=== PATIENT | female | born 1980 | race Caucasian/White ===

== ENCOUNTER 2016-10-18 13:46 | Emergency (ER) | payer MEDICAID ==
[2016-10-18] MEDS ORDERED: Acetaminophen 325 MG Tab PO ONE (14:51)
--- NOTE | 2016-10-18 14:57 | EDM.PDOC ---
ED HPI GENERAL MEDICAL PROBLEM - General Chief Complaint: General Stated Complaint: LEGS ARE SWOLLEN Time Seen by Provider: 10/18/16 14:35 Source of Information: Reports: Patient, RN notes reviewed History Limitations: Reports: No limitations - History of Present Illness INITIAL COMMENTS - FREE TEXT/NARRATIVE: 36-year-old female presents to emergency department today with complaint of elevated blood pressure and dental pain, she recently had a tooth extracted has been using codeine to control her pain however she felt something was not quite right presented to the emergency department for further evaluation she is currently at 19 weeks 2 days by ultrasound, she is a 5 para 4 she has had no complications with this no vaginal bleeding no discharge has felt movement did have complications with her last near the end developed preeclampsia. Has had an ultrasound at 8 weeks - Related Data Allergies Allergy/AdvReac Type Severity Reaction Status Date / Time morphine AdvReac Vomiting Verified 10/18/16 14:20 Penicillins AdvReac Nausea and Verified 10/18/16 14:20 Vomiting Home Meds: Home Meds Cranberry 500 mg PO DAILY 09/30/13 [History] Garlic 1 tab PO DAILY 09/30/13 [History] #103/Iron Fumarate/Fa [ ] 1 tab PO DAILY 07/28/16 [ History] Past Medical History Cardiovascular History: Reports: Hypertension Respiratory History: Reports: Asthma Genitourinary History: Reports: UTI, recurrent Other OB/BYN History: cervical CA Oncologic (Cancer) History: Reports: Cervix - Past Surgical History Other HEENT Surgeries/Procedures: teeth removed as child Cardiovascular Surgical History: Reports: None GI Surgical History: Reports: Cholecystectomy, Other (see below) Other GI Surgeries/Procedures: tumors removed from small intestine, benign Female Surgical History: Reports: section Social & Family History - Tobacco Use Smoking Status *Q: Heavy Tobacco Smoker Years of Tobacco use: 20 Packs/Tins Daily: 1 Used Tobacco, but Quit: No Second Hand Smoke Exposure: Yes - Alcohol Use Days Per Week of Alcohol Use: 0 - Recreational Drug Use Recreational Drug Use: No Drug Use in Last 12 Months: No Recreational Drug Type: Reports: Marijuana/Hashish, Methamphetamine Recreational Drug Use Frequency: Not Used In Over 1 Year ED ROS GENERAL - Review of Systems Review Of Systems: See Below Constitutional: Reports: no symptoms HEENT: Reports: No symptoms Respiratory: Reports: No Symptoms Cardiovascular: Reports: No symptoms GI/Abdominal: Reports: No symptoms : Reports: no symptoms Musculoskeletal: Reports: no symptoms Skin: Reports: no symptoms Neurological: Reports: Headache Psychiatric: Reports: No symptoms ED EXAM, GENERAL - Physical Exam Exam: See Below Exam Limited By: No limitations General Appearance: alert, WD/WN, no apparent distress Respiratory/Chest: no respiratory distress GI/Abdominal: soft, non tender, other (measures 20 cm) Extremities: pedal edema Course - Vital Signs Last Recorded V/S: Last Vital Signs Temp 95.7 F 10/18/16 14:20 Pulse 67 10/18/16 15:43 Resp 16 10/18/16 15:43 BP 164/83 H 10/18/16 15:43 Pulse Ox 97 10/18/16 15:43 - Orders/Labs/Meds Labs: Laboratory Tests 10/18/16 10/18/16 10/18/16 Range/Units 14:51 14:51 14:51 WBC 10.3 (4.5-11.0) K/uL RBC 2.87 L (3.30-5.50) M/uL Hgb 9.6 L D (12.0-15.0) g/dL Hct 28.2 L (36.0-48.0) % MCV 98 (80-98) fL MCH 33 H (27-31) pg MCHC 34 (32-36) % Plt Count 217 (150-400) K/uL Neut % (Auto) 64 (36-66) % Lymph % (Auto) 23 L (24-44) % [place] % (Auto) 11 H (2-6) % Eos % (Auto) 2 (2-4) % Baso % (Auto) 1 (0-1) % PT 10.2 (9.5-12.0) sec INR 0.96 (0.80-1.20) Sodium 140 (140-148) mmol/L Potassium 3.3 L (3.6-5.2) mmol/L Chloride 106 (100-108) mmol/L Carbon Dioxide 23 (21-32) mmol/L Anion Gap 14.3 H (5.0-14.0) mmol/L BUN 8 (7-18) mg/dL Creatinine 0.6 (0.6-1.0) mg/dL Est Cr Clr Drug Dosing 114.40 mL/min Estimated GFR (MDRD) > 60 (>60) Glucose 83 (74-106) mg/dL Uric Acid (2.6-6.2) mg/dL Calcium 7.6 L (8.5-10.1) mg/dL Total Bilirubin 0.2 (0.2-1.0) mg/dL AST 19 (15-37) U/L ALT 30 (12-78) U/L Alkaline Phosphatase 101 (46-116) U/L Total Protein 5.7 L (6.4-8.2) g/dL Albumin 2.3 L (3.4-5.0) g/dL Globulin 3.4 (2.3-3.5) g/dL Albumin/Globulin Ratio 0.7 L (1.2-2.2) Urine Color Urine Appearance Urine pH (4.5-8.0) Ur Specific [place] (1.008-1.030) Urine Protein (NEGATIVE) mg/dL Urine Glucose (UA) (NEGATIVE) mg/dL Urine Ketones (NEGATIVE) mg/dL Urine Occult Blood (NEGATIVE) Urine Nitrite (NEGATIVE) Urine Bilirubin (NEGATIVE) Urine Urobilinogen (NORMAL) mg/dL Ur Leukocyte Esterase (NEGATIVE) Urine RBC (0-5) Urine WBC (0-5) Ur Epithelial Cells Amorphous Sediment Urine Bacteria Urine Mucus 10/18/16 10/18/16 Range/Units 14:51 15:19 WBC (4.5-11.0) K/uL RBC (3.30-5.50) M/uL Hgb (12.0-15.0) g/dL Hct (36.0-48.0) % MCV (80-98) fL MCH (27-31) pg MCHC (32-36) % Plt Count (150-400) K/uL Neut % (Auto) (36-66) % Lymph % (Auto) (24-44) % [place] % (Auto) (2-6) % Eos % (Auto) (2-4) % Baso % (Auto) (0-1) % PT (9.5-12.0) sec INR (0.80-1.20) Sodium (140-148) mmol/L Potassium (3.6-5.2) mmol/L Chloride (100-108) mmol/L Carbon Dioxide (21-32) mmol/L Anion Gap (5.0-14.0) mmol/L BUN (7-18) mg/dL Creatinine (0.6-1.0) mg/dL Est Cr Clr Drug Dosing mL/min Estimated GFR (MDRD) (>60) Glucose (74-106) mg/dL Uric Acid 3.4 (2.6-6.2) mg/dL Calcium (8.5-10.1) mg/dL Total Bilirubin (0.2-1.0) mg/dL AST (15-37) U/L ALT (12-78) U/L Alkaline Phosphatase (46-116) U/L Total Protein (6.4-8.2) g/dL Albumin (3.4-5.0) g/dL Globulin (2.3-3.5) g/dL Albumin/Globulin Ratio (1.2-2.2) Urine Color Yellow Urine Appearance Clear Urine pH 7.0 (4.5-8.0) Ur Specific [place] 1.010 (1.008-1.030) Urine Protein 500 H (NEGATIVE) mg/dL Urine Glucose (UA) Normal (NEGATIVE) mg/dL Urine Ketones 15 H (NEGATIVE) mg/dL Urine Occult Blood Large (NEGATIVE) Urine Nitrite Negative (NEGATIVE) Urine Bilirubin Negative (NEGATIVE) Urine Urobilinogen Normal (NORMAL) mg/dL Ur Leukocyte Esterase Negative (NEGATIVE) Urine RBC 10-20 H (0-5) Urine WBC 0-5 (0-5) Ur Epithelial Cells Few Amorphous Sediment Not seen Urine Bacteria Not seen Urine Mucus Rare Meds: Medications Discontinued Medications Generic Name Dose Route Start Last Admin Trade Name Ana María PRN Reason Stop Dose Admin Acetaminophen 650 mg 10/18/16 14:51 10/18/16 15:09 Tylenol PO 10/18/16 14:52 650 mg NOW ONE Administration Departure - Departure Time of Disposition: 16:31 Disposition: Home, Self-Care 01 Condition: good Clinical Impression: Gestational hypertension Qualifiers: Trimester: second trimester Qualified Code(s): O13.2 - Gestational [- induced] hypertension without significant proteinuria, second trimester Forms: ED Department Discharge Additional Instructions: start labetalol 1 tablet once a day, with the plan to increasing to twice a day please followup with your OB provider on Tuesday for blood pressure and urine recheck - Assessment/Plan Plan: Assessment Acuity = acute Site and laterality = gestational hypertension Etiology = unclear etiology Manifestations = none Location of injury = home Lab values = hemoglobin 9.6 consistent with normal chromic anemia INR normal at 0.96 potassium low at 3.3 consistent with a hypokalemia uric acid normal at 3.4 albumin low at 2.3 consistent hypoalbuminemia urinalysis doesn't demonstrate 500 protein consistent with proteinuria RBCs 10-20 consistent hematuria Plan I did consult Andry Nuno nurse rn social services metal [employer] worker discussed the case with her reviewed old blood pressure values last blood pressure in July of this year 145/94, plan is to start labetalol 100 mg once a day and then advance to twice a day dosing I will start once daily prescription written she is going to followup with her OB provider on Tuesday of this week Patient was in agreement with the plan all questions were answered, they were instructed to return to the emergency department or call for worsening symptoms. This note was dictated using [employer] voice recognition software please call with any questions.
[2016-10-18 15:44] VITALS: BP 164/83
== END 2016-10-18 16:53 | disposition home or self-care (01) ==
LOC: JP.ED 13:46
DX: O13.2 Gestational [pregnancy-induced] hypertension without significant proteinuria, second trimester (principal); O99.332 Smoking (tobacco) complicating pregnancy, second trimester; F17.210 Nicotine dependence, cigarettes, uncomplicated; Z3A.12 12 weeks gestation of pregnancy; Z79.899 Other long term (current) drug therapy; Z88.0 Allergy status to penicillin; Z88.5 Allergy status to narcotic agent; Z85.41 Personal history of malignant neoplasm of cervix uteri; Z90.49 Acquired absence of other specified parts of digestive tract; Z98.890 Other specified postprocedural states
CPT/HCPCS: 36415; 80053; 81001; 84550; 85025; 85610; 99284; A9270

== ENCOUNTER 2017-02-10 14:38 | Observation (INO) | payer MEDICAID ==
[2017-02-10] MEDS ORDERED: Sodium Chloride 0.9% 10 ML Syringe FLUSH PRN (14:53)
[2017-02-10] MEDS ORDERED: Labetalol 20 MG/4 ML Syringe IVPUSH ONE ×2 (15:03→15:15)
[2017-02-10] MEDS: Lactated Ringers 1,000 ML IV SCH ×2 (15:15→22:55)
[2017-02-10] MEDS: Labetalol 100 MG Tab PO SCH ×2 (19:47→22:00)
--- NOTE | 2017-02-10 20:16 | PCM.PN ---
- General Info Date of Service: 02/10/17 Functional Status: Reports: Pain Controlled - Review of Systems General: Reports: No Symptoms HEENT: Reports: No Symptoms Pulmonary: Reports: No Symptoms Cardiovascular: Reports: No Symptoms Gastrointestinal: Reports: No Symptoms Genitourinary: Reports: No Symptoms Musculoskeletal: Reports: No Symptoms Skin: Reports: No Symptoms Neurological: Reports: No Symptoms Psychiatric: Reports: No Symptoms - Patient Data Vitals - most recent: Last Vital Signs Temp 36.1 C 02/10/17 19:24 Pulse 66 02/10/17 19:47 Resp 14 02/10/17 14:38 BP 155/78 H 02/10/17 19:47 Pulse Ox Weight - most recent: 69.853 kg I&O - last 24 hours: Intake & Output 02/10/17 02/10/17 02/10/17 06:59 14:59 22:59 Intake Total 458 Balance 458 Lab Results last 24 hrs: Laboratory Results - last 24 hr 02/10/17 02/10/17 02/10/17 Range/Units 14:43 15:04 15:04 WBC 13.1 H (4.5-11.0) K/uL RBC 3.17 L (3.30-5.50) M/uL Hgb 10.5 L (12.0-15.0) g/dL Hct 30.7 L (36.0-48.0) % MCV 97 (80-98) fL MCH 33 H (27-31) pg MCHC 34 (32-36) % Plt Count 222 (150-400) K/uL Neut % (Auto) 66 (36-66) % Lymph % (Auto) 21 L (24-44) % [place] % (Auto) 11 H (2-6) % Eos % (Auto) 1 L (2-4) % Baso % (Auto) 1 (0-1) % Sodium 136 L (140-148) mmol/L Potassium 3.5 L (3.6-5.2) mmol/L Chloride 104 (100-108) mmol/L Carbon Dioxide 21 (21-32) mmol/L Anion Gap 14.5 H (5.0-14.0) mmol/L BUN 10 (7-18) mg/dL Creatinine 0.7 (0.6-1.0) mg/dL Est Cr Clr Drug Dosing 98.05 mL/min Estimated GFR (MDRD) > 60 (>60) Glucose 76 (74-106) mg/dL Uric Acid (2.6-6.2) mg/dL Calcium 7.8 L (8.5-10.1) mg/dL Total Bilirubin 0.1 L (0.2-1.0) mg/dL AST 16 (15-37) U/L ALT 13 (12-78) U/L Alkaline Phosphatase 115 (46-116) U/L Total Protein 5.5 L (6.4-8.2) g/dL Albumin 1.8 L (3.4-5.0) g/dL Globulin 3.7 H (2.3-3.5) g/dL Albumin/Globulin Ratio 0.5 L (1.2-2.2) Urine Color [place] Urine Appearance Slightly cloudy Urine pH 6.0 (4.5-8.0) Ur Specific [place] 1.020 (1.008-1.030) Urine Protein 500 H (NEGATIVE) mg/dL Urine Glucose (UA) Normal (NEGATIVE) mg/dL Urine Ketones Negative (NEGATIVE) mg/dL Urine Occult Blood Moderate (NEGATIVE) Urine Nitrite Negative (NEGATIVE) Urine Bilirubin Negative (NEGATIVE) Urine Urobilinogen Normal (NORMAL) mg/dL Ur Leukocyte Esterase Small (NEGATIVE) Urine RBC 0-5 (0-5) Urine WBC 0-5 (0-5) Ur Epithelial Cells Many Amorphous Sediment Rare Urine Bacteria Rare Urine Mucus Few Ur Random Creatinine (20.0-370.0) mg/dL U Random Total Protein (6.0-11.9) mg/dL Protein/Creatinin Ratio (21.0-161.0) mg/g Urine Opiates Screen (NEGATIVE) Ur Oxycodone Screen (NEGATIVE) Urine Methadone Screen (NEGATIVE) Ur Propoxyphene Screen (NEGATIVE) Ur Barbiturates Screen (NEGATIVE) Ur Tricyclics Screen (NEGATIVE) Ur Phencyclidine Scrn (NEGATIVE) Ur Amphetamine Screen (NEGATIVE) U Methamphetamines Scrn (NEGATIVE) Urine MDMA Screen (NEGATIVE) U Benzodiazepines Scrn (NEGATIVE) U Cocaine Metab Screen (NEGATIVE) U Marijuana (THC) Screen (NEGATIVE) 02/10/17 02/10/17 02/10/17 Range/Units 17:00 18:06 18:06 WBC (4.5-11.0) K/uL RBC (3.30-5.50) M/uL Hgb (12.0-15.0) g/dL Hct (36.0-48.0) % MCV (80-98) fL MCH (27-31) pg MCHC (32-36) % Plt Count (150-400) K/uL Neut % (Auto) (36-66) % Lymph % (Auto) (24-44) % [place] % (Auto) (2-6) % Eos % (Auto) (2-4) % Baso % (Auto) (0-1) % Sodium (140-148) mmol/L Potassium (3.6-5.2) mmol/L Chloride (100-108) mmol/L Carbon Dioxide (21-32) mmol/L Anion Gap (5.0-14.0) mmol/L BUN (7-18) mg/dL Creatinine (0.6-1.0) mg/dL Est Cr Clr Drug Dosing mL/min Estimated GFR (MDRD) (>60) Glucose (74-106) mg/dL Uric Acid 4.6 (2.6-6.2) mg/dL Calcium (8.5-10.1) mg/dL Total Bilirubin (0.2-1.0) mg/dL AST (15-37) U/L ALT (12-78) U/L Alkaline Phosphatase (46-116) U/L Total Protein (6.4-8.2) g/dL Albumin (3.4-5.0) g/dL Globulin (2.3-3.5) g/dL Albumin/Globulin Ratio (1.2-2.2) Urine Color Urine Appearance Urine pH (4.5-8.0) Ur Specific [place] (1.008-1.030) Urine Protein (NEGATIVE) mg/dL Urine Glucose (UA) (NEGATIVE) mg/dL Urine Ketones (NEGATIVE) mg/dL Urine Occult Blood (NEGATIVE) Urine Nitrite (NEGATIVE) Urine Bilirubin (NEGATIVE) Urine Urobilinogen (NORMAL) mg/dL Ur Leukocyte Esterase (NEGATIVE) Urine RBC (0-5) Urine WBC (0-5) Ur Epithelial Cells Amorphous Sediment Urine Bacteria Urine Mucus Ur Random Creatinine 185.0 (20.0-370.0) mg/dL U Random Total Protein 1100.0 H (6.0-11.9) mg/dL Protein/Creatinin Ratio 5945.9 H (21.0-161.0) mg/g Urine Opiates Screen Negative (NEGATIVE) Ur Oxycodone Screen Negative (NEGATIVE) Urine Methadone Screen Negative (NEGATIVE) Ur Propoxyphene Screen Negative (NEGATIVE) Ur Barbiturates Screen Negative (NEGATIVE) Ur Tricyclics Screen Negative (NEGATIVE) Ur Phencyclidine Scrn Negative (NEGATIVE) Ur Amphetamine Screen Negative (NEGATIVE) U Methamphetamines Scrn Negative (NEGATIVE) Urine MDMA Screen Negative (NEGATIVE) U Benzodiazepines Scrn Negative (NEGATIVE) U Cocaine Metab Screen Negative (NEGATIVE) U Marijuana (THC) Screen Positive H (NEGATIVE) Med Orders - Current: Current Medications Lactated Ringer's (Ringers, Lactated) 1,000 mls @ 125 mls/hr IV ASDIRECTED PHILIP Last Admin: 02/10/17 15:15 Dose: 125 mls/hr Labetalol HCl (Normodyne) 100 mg PO BID [facility] Last Admin: 02/10/17 19:47 Dose: 100 mg Sodium Chloride (Saline Flush) 10 ml FLUSH ASDIRECTED PRN PRN Reason: Keep Vein Open Discontinued Medications Labetalol HCl (Normodyne) 20 mg IVPUSH NOW ONE PRN Reason: Protocol Stop: 02/10/17 15:04 Last Admin: 02/10/17 15:45 Dose: 20 mg Labetalol HCl (Normodyne) 0 mg IVPUSH NOW ONE PRN Reason: Protocol Stop: 02/10/17 15:16 Last Admin: 02/10/17 16:45 Dose: 20 mg - Exam General: alert, oriented HEENT: Pupils equal, Pupils reactive, EOMI, Mucous membr. moist/pink Neck: supple Lungs: Clear to Auscultation, Normal Respiratory Effort Cardiovascular: Regular Rate, Regular Rhythm GI/Abdominal Exam: Normal Bowel Sounds, Soft, Non-Tender, No Organomegaly, No Distention, No Abnormal Bruit, No Mass, Pelvis Stable Back Exam: Normal Inspection, Full Range of Motion Extremities: Normal Inspection, Normal Range of Motion, Non-Tender, No Pedal Edema, Normal Capillary Refill Skin: warm, dry, intact Neurological: no new focal deficit Psy/Mental Status: alert, normal affect, normal mood - Problem List & Annotations (1) High risk due to maternal drug abuse in third trimester SNOMED Code(s): 424338293, 301937650 Code(s): O99.323 - DRUG USE COMPLICATING , THIRD TRIMESTER; F19.90 - OTHER PSYCHOACTIVE SUBSTANCE USE, UNSPECIFIED, UNCOMPLICATED Status: Acute Current Visit: Yes (2) High-risk , multigravida in woman 35 years of age or older SNOMED Code(s): 97148009, 534413012 Code(s): O09.529 - SUPERVISION OF ELDERLY MULTIGRAVIDA, UNSPECIFIED TRIMESTER Status: Acute Current Visit: Yes (3) Chronic UTI (urinary tract infection) SNOMED Code(s): 317862368 Code(s): N39.0 - URINARY TRACT INFECTION, SITE NOT SPECIFIED Status: Acute Current Visit: Yes (4) History of delivery SNOMED Code(s): 136119719 Code(s): Z87.51 - PERSONAL HISTORY OF PRE-TERM LABOR Status: Acute Current Visit: Yes (5) Gestational hypertension SNOMED Code(s): 01316354 Code(s): O13.9 - GESTATIONAL HTN W/O SIGNIFICANT PROTEINURIA, UNSP TRIMESTER Status: Acute Current Visit: No Qualifiers: Trimester: third trimester Qualified Code(s): O13.3 - Gestational [ -induced] hypertension without significant proteinuria, third trimester - Problem List Review Problem List Initiated/Reviewed/Updated: Yes - My Orders Last 24 Hours: My Active Orders 02/10/17 BPP w NST [US] Routine 02/10/17 14:42 OB Check [OM.PC] Click to Edit 02/10/17 14:53 Peripheral IV Care [RC] . DIRECTED Sodium Chloride 0.9% [Saline Flush] 10 ml FLUSH ASDIRECTED PRN Peripheral IV Insertion Adult [OM.PC] Routine 02/10/17 15:00 Lactated Ringers [Ringers, Lactated] 1,000 ml IV ASDIRECTED 02/10/17 15:32 OB Ltd 1 or More Fetus [US] Routine 02/10/17 18:00 PROTEIN,URINE 24HR [URCHEM] Routine 02/10/17 19:40 Labetalol [Normodyne] 100 mg PO BID - Assessment Assessment:: 02/10/2017 36 yo @ 35 3/7 weeks gestation, was seen in the clinic today for her weekly NST and was noted to have high BP-170/94, 168/90, was sent over to L&D for monitoring and lab work and US Plan- Monitor BP LR 125 ml/hr CBC, CMP, Uric Acid, UDS, UA Labetalol 20mg IVP now Monitor FHTs BPP with size Will evaluate after results are back
[2017-02-10] MEDS ORDERED: Nicotine 10 MG/Cartridge Inhaler 168 Cartridges/Box INH PRN (20:31)
--- NOTE | 2017-02-10 20:37 | PCM.PN ---
- General Info Date of Service: 02/10/17 - Patient Data Vitals - most recent: Last Vital Signs Temp 36.1 C 02/10/17 19:24 Pulse 66 02/10/17 19:47 Resp 14 02/10/17 14:38 BP 155/78 H 02/10/17 19:47 Pulse Ox Weight - most recent: 69.853 kg I&O - last 24 hours: Intake & Output 02/10/17 02/10/17 02/10/17 06:59 14:59 22:59 Intake Total 458 Balance 458 Lab Results last 24 hrs: Laboratory Results - last 24 hr 02/10/17 02/10/17 02/10/17 Range/Units 14:43 15:04 15:04 WBC 13.1 H (4.5-11.0) K/uL RBC 3.17 L (3.30-5.50) M/uL Hgb 10.5 L (12.0-15.0) g/dL Hct 30.7 L (36.0-48.0) % MCV 97 (80-98) fL MCH 33 H (27-31) pg MCHC 34 (32-36) % Plt Count 222 (150-400) K/uL Neut % (Auto) 66 (36-66) % Lymph % (Auto) 21 L (24-44) % [place] % (Auto) 11 H (2-6) % Eos % (Auto) 1 L (2-4) % Baso % (Auto) 1 (0-1) % Sodium 136 L (140-148) mmol/L Potassium 3.5 L (3.6-5.2) mmol/L Chloride 104 (100-108) mmol/L Carbon Dioxide 21 (21-32) mmol/L Anion Gap 14.5 H (5.0-14.0) mmol/L BUN 10 (7-18) mg/dL Creatinine 0.7 (0.6-1.0) mg/dL Est Cr Clr Drug Dosing 98.05 mL/min Estimated GFR (MDRD) > 60 (>60) Glucose 76 (74-106) mg/dL Uric Acid (2.6-6.2) mg/dL Calcium 7.8 L (8.5-10.1) mg/dL Total Bilirubin 0.1 L (0.2-1.0) mg/dL AST 16 (15-37) U/L ALT 13 (12-78) U/L Alkaline Phosphatase 115 (46-116) U/L Total Protein 5.5 L (6.4-8.2) g/dL Albumin 1.8 L (3.4-5.0) g/dL Globulin 3.7 H (2.3-3.5) g/dL Albumin/Globulin Ratio 0.5 L (1.2-2.2) Urine Color [place] Urine Appearance Slightly cloudy Urine pH 6.0 (4.5-8.0) Ur Specific [place] 1.020 (1.008-1.030) Urine Protein 500 H (NEGATIVE) mg/dL Urine Glucose (UA) Normal (NEGATIVE) mg/dL Urine Ketones Negative (NEGATIVE) mg/dL Urine Occult Blood Moderate (NEGATIVE) Urine Nitrite Negative (NEGATIVE) Urine Bilirubin Negative (NEGATIVE) Urine Urobilinogen Normal (NORMAL) mg/dL Ur Leukocyte Esterase Small (NEGATIVE) Urine RBC 0-5 (0-5) Urine WBC 0-5 (0-5) Ur Epithelial Cells Many Amorphous Sediment Rare Urine Bacteria Rare Urine Mucus Few Ur Random Creatinine (20.0-370.0) mg/dL U Random Total Protein (6.0-11.9) mg/dL Protein/Creatinin Ratio (21.0-161.0) mg/g Urine Opiates Screen (NEGATIVE) Ur Oxycodone Screen (NEGATIVE) Urine Methadone Screen (NEGATIVE) Ur Propoxyphene Screen (NEGATIVE) Ur Barbiturates Screen (NEGATIVE) Ur Tricyclics Screen (NEGATIVE) Ur Phencyclidine Scrn (NEGATIVE) Ur Amphetamine Screen (NEGATIVE) U Methamphetamines Scrn (NEGATIVE) Urine MDMA Screen (NEGATIVE) U Benzodiazepines Scrn (NEGATIVE) U Cocaine Metab Screen (NEGATIVE) U Marijuana (THC) Screen (NEGATIVE) 02/10/17 02/10/17 02/10/17 Range/Units 17:00 18:06 18:06 WBC (4.5-11.0) K/uL RBC (3.30-5.50) M/uL Hgb (12.0-15.0) g/dL Hct (36.0-48.0) % MCV (80-98) fL MCH (27-31) pg MCHC (32-36) % Plt Count (150-400) K/uL Neut % (Auto) (36-66) % Lymph % (Auto) (24-44) % [place] % (Auto) (2-6) % Eos % (Auto) (2-4) % Baso % (Auto) (0-1) % Sodium (140-148) mmol/L Potassium (3.6-5.2) mmol/L Chloride (100-108) mmol/L Carbon Dioxide (21-32) mmol/L Anion Gap (5.0-14.0) mmol/L BUN (7-18) mg/dL Creatinine (0.6-1.0) mg/dL Est Cr Clr Drug Dosing mL/min Estimated GFR (MDRD) (>60) Glucose (74-106) mg/dL Uric Acid 4.6 (2.6-6.2) mg/dL Calcium (8.5-10.1) mg/dL Total Bilirubin (0.2-1.0) mg/dL AST (15-37) U/L ALT (12-78) U/L Alkaline Phosphatase (46-116) U/L Total Protein (6.4-8.2) g/dL Albumin (3.4-5.0) g/dL Globulin (2.3-3.5) g/dL Albumin/Globulin Ratio (1.2-2.2) Urine Color Urine Appearance Urine pH (4.5-8.0) Ur Specific [place] (1.008-1.030) Urine Protein (NEGATIVE) mg/dL Urine Glucose (UA) (NEGATIVE) mg/dL Urine Ketones (NEGATIVE) mg/dL Urine Occult Blood (NEGATIVE) Urine Nitrite (NEGATIVE) Urine Bilirubin (NEGATIVE) Urine Urobilinogen (NORMAL) mg/dL Ur Leukocyte Esterase (NEGATIVE) Urine RBC (0-5) Urine WBC (0-5) Ur Epithelial Cells Amorphous Sediment Urine Bacteria Urine Mucus Ur Random Creatinine 185.0 (20.0-370.0) mg/dL U Random Total Protein 1100.0 H (6.0-11.9) mg/dL Protein/Creatinin Ratio 5945.9 H (21.0-161.0) mg/g Urine Opiates Screen Negative (NEGATIVE) Ur Oxycodone Screen Negative (NEGATIVE) Urine Methadone Screen Negative (NEGATIVE) Ur Propoxyphene Screen Negative (NEGATIVE) Ur Barbiturates Screen Negative (NEGATIVE) Ur Tricyclics Screen Negative (NEGATIVE) Ur Phencyclidine Scrn Negative (NEGATIVE) Ur Amphetamine Screen Negative (NEGATIVE) U Methamphetamines Scrn Negative (NEGATIVE) Urine MDMA Screen Negative (NEGATIVE) U Benzodiazepines Scrn Negative (NEGATIVE) U Cocaine Metab Screen Negative (NEGATIVE) U Marijuana (THC) Screen Positive H (NEGATIVE) Med Orders - Current: Current Medications Acetaminophen (Tylenol) 650 mg PO Q6H PRN PRN Reason: Pain Lactated Ringer's (Ringers, Lactated) 1,000 mls @ 125 mls/hr IV ASDIRECTED [facility] Last Admin: 02/10/17 15:15 Dose: 125 mls/hr Labetalol HCl (Normodyne) 100 mg PO BID PHILIP Last Admin: 02/10/17 19:47 Dose: 100 mg Nitrofurantoin Macrocrystals (Macrodantin) 50 mg PO BEDTIME [facility] Sodium Chloride (Saline Flush) 10 ml FLUSH ASDIRECTED PRN PRN Reason: Keep Vein Open Discontinued Medications Labetalol HCl (Normodyne) 20 mg IVPUSH NOW ONE PRN Reason: Protocol Stop: 02/10/17 15:04 Last Admin: 02/10/17 15:45 Dose: 20 mg Labetalol HCl (Normodyne) 0 mg IVPUSH NOW ONE PRN Reason: Protocol Stop: 02/10/17 15:16 Last Admin: 02/10/17 16:45 Dose: 20 mg - Problem List & Annotations (1) High risk due to maternal drug abuse in third trimester SNOMED Code(s): 626251677, 285116843 Code(s): O99.323 - DRUG USE COMPLICATING , THIRD TRIMESTER; F19.90 - OTHER PSYCHOACTIVE SUBSTANCE USE, UNSPECIFIED, UNCOMPLICATED Status: Acute Current Visit: Yes (2) High-risk , multigravida in woman 35 years of age or older SNOMED Code(s): 23811448, 640657606 Code(s): O09.529 - SUPERVISION OF ELDERLY MULTIGRAVIDA, UNSPECIFIED TRIMESTER Status: Acute Current Visit: Yes (3) Chronic UTI (urinary tract infection) SNOMED Code(s): 611471310 Code(s): N39.0 - URINARY TRACT INFECTION, SITE NOT SPECIFIED Status: Acute Current Visit: Yes (4) History of delivery SNOMED Code(s): 787847023 Code(s): Z87.51 - PERSONAL HISTORY OF PRE-TERM LABOR Status: Acute Current Visit: Yes (5) Gestational hypertension SNOMED Code(s): 42305964 Code(s): O13.9 - GESTATIONAL HTN W/O SIGNIFICANT PROTEINURIA, UNSP TRIMESTER Status: Acute Current Visit: No Qualifiers: Trimester: third trimester Qualified Code(s): O13.3 - Gestational [ -induced] hypertension without significant proteinuria, third trimester - Problem List Review Problem List Initiated/Reviewed/Updated: Yes - My Orders Last 24 Hours: My Active Orders 02/10/17 BPP w NST [US] Routine 02/10/17 14:42 OB Check [OM.PC] Click to Edit 02/10/17 14:53 Peripheral IV Care [RC] . DIRECTED Sodium Chloride 0.9% [Saline Flush] 10 ml FLUSH ASDIRECTED PRN Peripheral IV Insertion Adult [OM.PC] Routine 02/10/17 15:00 Lactated Ringers [Ringers, Lactated] 1,000 ml IV ASDIRECTED 02/10/17 15:32 OB Ltd 1 or More Fetus [US] Routine 02/10/17 18:00 PROTEIN,URINE 24HR [URCHEM] Routine 02/10/17 19:40 Labetalol [Normodyne] 100 mg PO BID 02/10/17 20:18 Acetaminophen [Tylenol] 650 mg PO Q6H PRN 02/10/17 21:00 Nitrofurantoin Macrocrystal [Macrodantin] 50 mg PO BEDTIME - Assessment Assessment:: 02/10/2017 36 yo @ 35 3/7 weeks gestation, was seen in the clinic today for her weekly NST and was noted to have high BP-170/94, 168/90, was sent over to L&D for monitoring and lab work and US Plan- Monitor BP LR 125 ml/hr CBC, CMP, Uric Acid, UDS, UA Labetalol 20mg IVP now Monitor FHTs BPP with size Will evaluate after results are back 02/10/2017 BPP done with size-Fetus measuring symmetrically small at 32 weeks when should be 35 3/7 wks BPP 8/8 Labs not HELLP or preeclampsia-did have Protein in urine but has whole Patient admitted that she has not been taking her labetalol [place] phoned for consult. Dr. Arana states to keep patient overnight, 24hr urine, BUN and creatnine are currently stable. Start back on labetalol, then have patient come for biweekly NST with BPP till 37 weeks then perform RCS at this time and place patient on bedrest - Plan Plan:: 02/10/2017 Initiate 24 hour urine CBC, CMP, uric acid again tomorrow Continue to monitor Vital signs Initiate oral labetalol Intermittent FHTs Bed rest Will plan discharge when 24 hour urine is complete
[2017-02-10] MEDS ORDERED: Nitrofurantoin Macrocrystal 50 MG Cap PO SCH (21:00)
--- NOTE | 2017-02-10 21:00 | PCM.PN ---
- General Info Date of Service: 02/10/17 - Patient Data Vitals - most recent: Last Vital Signs Temp 36.1 C 02/10/17 19:24 Pulse 68 02/10/17 20:37 Resp 18 02/10/17 20:37 BP 150/75 H 02/10/17 20:37 Pulse Ox Weight - most recent: 69.853 kg I&O - last 24 hours: Intake & Output 02/10/17 02/10/17 02/10/17 06:59 14:59 22:59 Intake Total 458 Balance 458 Lab Results last 24 hrs: Laboratory Results - last 24 hr 02/10/17 02/10/17 02/10/17 Range/Units 14:43 15:04 15:04 WBC 13.1 H (4.5-11.0) K/uL RBC 3.17 L (3.30-5.50) M/uL Hgb 10.5 L (12.0-15.0) g/dL Hct 30.7 L (36.0-48.0) % MCV 97 (80-98) fL MCH 33 H (27-31) pg MCHC 34 (32-36) % Plt Count 222 (150-400) K/uL Neut % (Auto) 66 (36-66) % Lymph % (Auto) 21 L (24-44) % [place] % (Auto) 11 H (2-6) % Eos % (Auto) 1 L (2-4) % Baso % (Auto) 1 (0-1) % Sodium 136 L (140-148) mmol/L Potassium 3.5 L (3.6-5.2) mmol/L Chloride 104 (100-108) mmol/L Carbon Dioxide 21 (21-32) mmol/L Anion Gap 14.5 H (5.0-14.0) mmol/L BUN 10 (7-18) mg/dL Creatinine 0.7 (0.6-1.0) mg/dL Est Cr Clr Drug Dosing 98.05 mL/min Estimated GFR (MDRD) > 60 (>60) Glucose 76 (74-106) mg/dL Uric Acid (2.6-6.2) mg/dL Calcium 7.8 L (8.5-10.1) mg/dL Total Bilirubin 0.1 L (0.2-1.0) mg/dL AST 16 (15-37) U/L ALT 13 (12-78) U/L Alkaline Phosphatase 115 (46-116) U/L Total Protein 5.5 L (6.4-8.2) g/dL Albumin 1.8 L (3.4-5.0) g/dL Globulin 3.7 H (2.3-3.5) g/dL Albumin/Globulin Ratio 0.5 L (1.2-2.2) Urine Color [place] Urine Appearance Slightly cloudy Urine pH 6.0 (4.5-8.0) Ur Specific [place] 1.020 (1.008-1.030) Urine Protein 500 H (NEGATIVE) mg/dL Urine Glucose (UA) Normal (NEGATIVE) mg/dL Urine Ketones Negative (NEGATIVE) mg/dL Urine Occult Blood Moderate (NEGATIVE) Urine Nitrite Negative (NEGATIVE) Urine Bilirubin Negative (NEGATIVE) Urine Urobilinogen Normal (NORMAL) mg/dL Ur Leukocyte Esterase Small (NEGATIVE) Urine RBC 0-5 (0-5) Urine WBC 0-5 (0-5) Ur Epithelial Cells Many Amorphous Sediment Rare Urine Bacteria Rare Urine Mucus Few Ur Random Creatinine (20.0-370.0) mg/dL U Random Total Protein (6.0-11.9) mg/dL Protein/Creatinin Ratio (21.0-161.0) mg/g Urine Opiates Screen (NEGATIVE) Ur Oxycodone Screen (NEGATIVE) Urine Methadone Screen (NEGATIVE) Ur Propoxyphene Screen (NEGATIVE) Ur Barbiturates Screen (NEGATIVE) Ur Tricyclics Screen (NEGATIVE) Ur Phencyclidine Scrn (NEGATIVE) Ur Amphetamine Screen (NEGATIVE) U Methamphetamines Scrn (NEGATIVE) Urine MDMA Screen (NEGATIVE) U Benzodiazepines Scrn (NEGATIVE) U Cocaine Metab Screen (NEGATIVE) U Marijuana (THC) Screen (NEGATIVE) 02/10/17 02/10/17 02/10/17 Range/Units 17:00 18:06 18:06 WBC (4.5-11.0) K/uL RBC (3.30-5.50) M/uL Hgb (12.0-15.0) g/dL Hct (36.0-48.0) % MCV (80-98) fL MCH (27-31) pg MCHC (32-36) % Plt Count (150-400) K/uL Neut % (Auto) (36-66) % Lymph % (Auto) (24-44) % [place] % (Auto) (2-6) % Eos % (Auto) (2-4) % Baso % (Auto) (0-1) % Sodium (140-148) mmol/L Potassium (3.6-5.2) mmol/L Chloride (100-108) mmol/L Carbon Dioxide (21-32) mmol/L Anion Gap (5.0-14.0) mmol/L BUN (7-18) mg/dL Creatinine (0.6-1.0) mg/dL Est Cr Clr Drug Dosing mL/min Estimated GFR (MDRD) (>60) Glucose (74-106) mg/dL Uric Acid 4.6 (2.6-6.2) mg/dL Calcium (8.5-10.1) mg/dL Total Bilirubin (0.2-1.0) mg/dL AST (15-37) U/L ALT (12-78) U/L Alkaline Phosphatase (46-116) U/L Total Protein (6.4-8.2) g/dL Albumin (3.4-5.0) g/dL Globulin (2.3-3.5) g/dL Albumin/Globulin Ratio (1.2-2.2) Urine Color Urine Appearance Urine pH (4.5-8.0) Ur Specific [place] (1.008-1.030) Urine Protein (NEGATIVE) mg/dL Urine Glucose (UA) (NEGATIVE) mg/dL Urine Ketones (NEGATIVE) mg/dL Urine Occult Blood (NEGATIVE) Urine Nitrite (NEGATIVE) Urine Bilirubin (NEGATIVE) Urine Urobilinogen (NORMAL) mg/dL Ur Leukocyte Esterase (NEGATIVE) Urine RBC (0-5) Urine WBC (0-5) Ur Epithelial Cells Amorphous Sediment Urine Bacteria Urine Mucus Ur Random Creatinine 185.0 (20.0-370.0) mg/dL U Random Total Protein 1100.0 H (6.0-11.9) mg/dL Protein/Creatinin Ratio 5945.9 H (21.0-161.0) mg/g Urine Opiates Screen Negative (NEGATIVE) Ur Oxycodone Screen Negative (NEGATIVE) Urine Methadone Screen Negative (NEGATIVE) Ur Propoxyphene Screen Negative (NEGATIVE) Ur Barbiturates Screen Negative (NEGATIVE) Ur Tricyclics Screen Negative (NEGATIVE) Ur Phencyclidine Scrn Negative (NEGATIVE) Ur Amphetamine Screen Negative (NEGATIVE) U Methamphetamines Scrn Negative (NEGATIVE) Urine MDMA Screen Negative (NEGATIVE) U Benzodiazepines Scrn Negative (NEGATIVE) U Cocaine Metab Screen Negative (NEGATIVE) U Marijuana (THC) Screen Positive H (NEGATIVE) Med Orders - Current: Current Medications Acetaminophen (Tylenol) 650 mg PO Q6H PRN PRN Reason: Pain Lactated Ringer's (Ringers, Lactated) 1,000 mls @ 125 mls/hr IV ASDIRECTED [facility] Last Admin: 02/10/17 15:15 Dose: 125 mls/hr Labetalol HCl (Normodyne) 100 mg PO BID PHILIP Last Admin: 02/10/17 19:47 Dose: 100 mg Nicotine (Nicotrol) 10 mg INH ASDIRECTED PRN PRN Reason: Withdrawal Symptoms Nitrofurantoin Macrocrystals (Macrodantin) 50 mg PO BEDTIME [facility] Sodium Chloride (Saline Flush) 10 ml FLUSH ASDIRECTED PRN PRN Reason: Keep Vein Open Discontinued Medications Labetalol HCl (Normodyne) 20 mg IVPUSH NOW ONE PRN Reason: Protocol Stop: 02/10/17 15:04 Last Admin: 02/10/17 15:45 Dose: 20 mg Labetalol HCl (Normodyne) 0 mg IVPUSH NOW ONE PRN Reason: Protocol Stop: 02/10/17 15:16 Last Admin: 02/10/17 16:45 Dose: 20 mg - Problem List & Annotations (1) High risk due to maternal drug abuse in third trimester SNOMED Code(s): 525401775, 454168152 Code(s): O99.323 - DRUG USE COMPLICATING , THIRD TRIMESTER; F19.90 - OTHER PSYCHOACTIVE SUBSTANCE USE, UNSPECIFIED, UNCOMPLICATED Status: Acute Current Visit: Yes (2) High-risk , multigravida in woman 35 years of age or older SNOMED Code(s): 38883740, 422943839 Code(s): O09.529 - SUPERVISION OF ELDERLY MULTIGRAVIDA, UNSPECIFIED TRIMESTER Status: Acute Current Visit: Yes (3) Chronic UTI (urinary tract infection) SNOMED Code(s): 513791042 Code(s): N39.0 - URINARY TRACT INFECTION, SITE NOT SPECIFIED Status: Acute Current Visit: Yes (4) History of delivery SNOMED Code(s): 339385363 Code(s): Z87.51 - PERSONAL HISTORY OF PRE-TERM LABOR Status: Acute Current Visit: Yes (5) Gestational hypertension SNOMED Code(s): 37450393 Code(s): O13.9 - GESTATIONAL HTN W/O SIGNIFICANT PROTEINURIA, UNSP TRIMESTER Status: Acute Current Visit: No Qualifiers: Trimester: third trimester Qualified Code(s): O13.3 - Gestational [ -induced] hypertension without significant proteinuria, third trimester - Problem List Review Problem List Initiated/Reviewed/Updated: Yes - My Orders Last 24 Hours: My Active Orders 02/10/17 BPP w NST [US] Routine 02/10/17 14:42 OB Check [OM.PC] Click to Edit 02/10/17 14:53 Peripheral IV Care [RC] . DIRECTED Sodium Chloride 0.9% [Saline Flush] 10 ml FLUSH ASDIRECTED PRN Peripheral IV Insertion Adult [OM.PC] Routine 02/10/17 15:00 Lactated Ringers [Ringers, Lactated] 1,000 ml IV ASDIRECTED 02/10/17 15:32 OB Ltd 1 or More Fetus [US] Routine 02/10/17 18:00 PROTEIN,URINE 24HR [URCHEM] Routine 02/10/17 19:40 Labetalol [Normodyne] 100 mg PO BID 02/10/17 20:18 Acetaminophen [Tylenol] 650 mg PO Q6H PRN 02/10/17 20:31 Nicotine [Nicotrol] 10 mg INH ASDIRECTED PRN 02/10/17 21:00 Nitrofurantoin Macrocrystal [Macrodantin] 50 mg PO BEDTIME - Assessment Assessment:: 02/10/2017 36 yo @ 35 3/7 weeks gestation, was seen in the clinic today for her weekly NST and was noted to have high BP-170/94, 168/90, was sent over to L&D for monitoring and lab work and US Plan- Monitor BP LR 125 ml/hr CBC, CMP, Uric Acid, UDS, UA Labetalol 20mg IVP now Monitor FHTs BPP with size Will evaluate after results are back 02/10/2017 BPP done with size-Fetus measuring symmetrically small at 32 weeks when should be 35 3/7 wks BPP 03/01 Labs not HELLP or preeclampsia-did have Protein in urine but has whole Patient admitted that she has not been taking her labetalol [place] phoned for consult. Dr. Arana states to keep patient overnight, 24hr urine, BUN and creatnine are currently stable. Start back on labetalol, then have patient come for biweekly NST with BPP till 37 weeks then perform RCS at this time and place patient on bedrest 02/10/2017 Patient is now refusing to maintain bedrest and wants to go outside and smoke. Explained risks and benefits, have offered nicotrol inhaler and medications to help with sleep Patient states she doesn't think that will work Patient told if she decided to leave she would be leaving AMA - Plan Plan:: 02/10/2017 Initiate 24 hour urine CBC, CMP, uric acid again tomorrow Continue to monitor Vital signs Initiate oral labetalol Intermittent FHTs Bed rest Will plan discharge when 24 hour urine is complete 02/10/2017 Encourage patient to maintain bedrest and to use nicotrol inhaler If patient leaves have her sign AMA papers
[2017-02-10] MEDS ORDERED: hydrOXYzine HCl 100 MG/2 ML SDV IM ONE (21:03)
[2017-02-10] MEDS ORDERED: Zolpidem 5 MG Tab PO PRN (21:03)
[2017-02-10] MEDS: Acetaminophen 325 MG Tab PO PRN (22:35)
[2017-02-11] MEDS: Acetaminophen 325 MG Tab PO PRN ×2 (05:42→12:16)
[2017-02-11] MEDS: Lactated Ringers 1,000 ML IV SCH (06:14)
[2017-02-11] MEDS ORDERED: Nicotine 10 MG/Cartridge Inhaler 168 Cartridges/Box INH PRN (07:11)
[2017-02-11] MEDS: Labetalol 100 MG Tab PO SCH (08:29)
--- NOTE | 2017-02-11 08:32 | PCM.PN ---
- General Info Date of Service: 02/11/17 Functional Status: Reports: Pain Controlled - Review of Systems General: Reports: No Symptoms HEENT: Reports: No Symptoms Pulmonary: Reports: No Symptoms Cardiovascular: Reports: No Symptoms Gastrointestinal: Reports: No Symptoms Genitourinary: Reports: No Symptoms Musculoskeletal: Reports: No Symptoms Skin: Reports: No Symptoms Neurological: Reports: No Symptoms Psychiatric: Reports: No Symptoms - Patient Data Vitals - most recent: Last Vital Signs Temp 36.8 C 02/11/17 02:30 Pulse 68 02/11/17 02:30 Resp 16 02/11/17 02:30 BP 158/79 H 02/11/17 02:30 Pulse Ox Weight - most recent: 69.853 kg I&O - last 24 hours: Intake & Output 02/10/17 02/11/17 02/11/17 22:59 06:59 14:59 Intake Total 458 2074 Output Total 300 1400 Balance 158 674 Lab Results last 24 hrs: Laboratory Results - last 24 hr 02/10/17 02/10/17 02/10/17 Range/Units 14:43 15:04 15:04 WBC 13.1 H (4.5-11.0) K/uL RBC 3.17 L (3.30-5.50) M/uL Hgb 10.5 L (12.0-15.0) g/dL Hct 30.7 L (36.0-48.0) % MCV 97 (80-98) fL MCH 33 H (27-31) pg MCHC 34 (32-36) % Plt Count 222 (150-400) K/uL Neut % (Auto) 66 (36-66) % Lymph % (Auto) 21 L (24-44) % [place] % (Auto) 11 H (2-6) % Eos % (Auto) 1 L (2-4) % Baso % (Auto) 1 (0-1) % Sodium 136 L (140-148) mmol/L Potassium 3.5 L (3.6-5.2) mmol/L Chloride 104 (100-108) mmol/L Carbon Dioxide 21 (21-32) mmol/L Anion Gap 14.5 H (5.0-14.0) mmol/L BUN 10 (7-18) mg/dL Creatinine 0.7 (0.6-1.0) mg/dL Est Cr Clr Drug Dosing 98.05 mL/min Estimated GFR (MDRD) > 60 (>60) Glucose 76 (74-106) mg/dL Uric Acid (2.6-6.2) mg/dL Calcium 7.8 L (8.5-10.1) mg/dL Total Bilirubin 0.1 L (0.2-1.0) mg/dL AST 16 (15-37) U/L ALT 13 (12-78) U/L Alkaline Phosphatase 115 (46-116) U/L Total Protein 5.5 L (6.4-8.2) g/dL Albumin 1.8 L (3.4-5.0) g/dL Globulin 3.7 H (2.3-3.5) g/dL Albumin/Globulin Ratio 0.5 L (1.2-2.2) Urine Color [place] Urine Appearance Slightly cloudy Urine pH 6.0 (4.5-8.0) Ur Specific [place] 1.020 (1.008-1.030) Urine Protein 500 H (NEGATIVE) mg/dL Urine Glucose (UA) Normal (NEGATIVE) mg/dL Urine Ketones Negative (NEGATIVE) mg/dL Urine Occult Blood Moderate (NEGATIVE) Urine Nitrite Negative (NEGATIVE) Urine Bilirubin Negative (NEGATIVE) Urine Urobilinogen Normal (NORMAL) mg/dL Ur Leukocyte Esterase Small (NEGATIVE) Urine RBC 0-5 (0-5) Urine WBC 0-5 (0-5) Ur Epithelial Cells Many Amorphous Sediment Rare Urine Bacteria Rare Urine Mucus Few Ur Random Creatinine (20.0-370.0) mg/dL U Random Total Protein (6.0-11.9) mg/dL Protein/Creatinin Ratio (21.0-161.0) mg/g Urine Opiates Screen (NEGATIVE) Ur Oxycodone Screen (NEGATIVE) Urine Methadone Screen (NEGATIVE) Ur Propoxyphene Screen (NEGATIVE) Ur Barbiturates Screen (NEGATIVE) Ur Tricyclics Screen (NEGATIVE) Ur Phencyclidine Scrn (NEGATIVE) Ur Amphetamine Screen (NEGATIVE) U Methamphetamines Scrn (NEGATIVE) Urine MDMA Screen (NEGATIVE) U Benzodiazepines Scrn (NEGATIVE) U Cocaine Metab Screen (NEGATIVE) U Marijuana (THC) Screen (NEGATIVE) 02/10/17 02/10/17 02/10/17 Range/Units 17:00 18:06 18:06 WBC (4.5-11.0) K/uL RBC (3.30-5.50) M/uL Hgb (12.0-15.0) g/dL Hct (36.0-48.0) % MCV (80-98) fL MCH (27-31) pg MCHC (32-36) % Plt Count (150-400) K/uL Neut % (Auto) (36-66) % Lymph % (Auto) (24-44) % [place] % (Auto) (2-6) % Eos % (Auto) (2-4) % Baso % (Auto) (0-1) % Sodium (140-148) mmol/L Potassium (3.6-5.2) mmol/L Chloride (100-108) mmol/L Carbon Dioxide (21-32) mmol/L Anion Gap (5.0-14.0) mmol/L BUN (7-18) mg/dL Creatinine (0.6-1.0) mg/dL Est Cr Clr Drug Dosing mL/min Estimated GFR (MDRD) (>60) Glucose (74-106) mg/dL Uric Acid 4.6 (2.6-6.2) mg/dL Calcium (8.5-10.1) mg/dL Total Bilirubin (0.2-1.0) mg/dL AST (15-37) U/L ALT (12-78) U/L Alkaline Phosphatase (46-116) U/L Total Protein (6.4-8.2) g/dL Albumin (3.4-5.0) g/dL Globulin (2.3-3.5) g/dL Albumin/Globulin Ratio (1.2-2.2) Urine Color Urine Appearance Urine pH (4.5-8.0) Ur Specific [place] (1.008-1.030) Urine Protein (NEGATIVE) mg/dL Urine Glucose (UA) (NEGATIVE) mg/dL Urine Ketones (NEGATIVE) mg/dL Urine Occult Blood (NEGATIVE) Urine Nitrite (NEGATIVE) Urine Bilirubin (NEGATIVE) Urine Urobilinogen (NORMAL) mg/dL Ur Leukocyte Esterase (NEGATIVE) Urine RBC (0-5) Urine WBC (0-5) Ur Epithelial Cells Amorphous Sediment Urine Bacteria Urine Mucus Ur Random Creatinine 185.0 (20.0-370.0) mg/dL U Random Total Protein 1100.0 H (6.0-11.9) mg/dL Protein/Creatinin Ratio 5945.9 H (21.0-161.0) mg/g Urine Opiates Screen Negative (NEGATIVE) Ur Oxycodone Screen Negative (NEGATIVE) Urine Methadone Screen Negative (NEGATIVE) Ur Propoxyphene Screen Negative (NEGATIVE) Ur Barbiturates Screen Negative (NEGATIVE) Ur Tricyclics Screen Negative (NEGATIVE) Ur Phencyclidine Scrn Negative (NEGATIVE) Ur Amphetamine Screen Negative (NEGATIVE) U Methamphetamines Scrn Negative (NEGATIVE) Urine MDMA Screen Negative (NEGATIVE) U Benzodiazepines Scrn Negative (NEGATIVE) U Cocaine Metab Screen Negative (NEGATIVE) U Marijuana (THC) Screen Positive H (NEGATIVE) 02/11/17 02/11/17 Range/Units 05:10 05:10 WBC 12.0 H (4.5-11.0) K/uL RBC 2.80 L (3.30-5.50) M/uL Hgb 9.5 L (12.0-15.0) g/dL Hct 27.6 L (36.0-48.0) % MCV 99 H (80-98) fL MCH 34 H (27-31) pg MCHC 34 (32-36) % Plt Count 205 (150-400) K/uL Neut % (Auto) 60 (36-66) % Lymph % (Auto) 25 (24-44) % [place] % (Auto) 13 H (2-6) % Eos % (Auto) 2 (2-4) % Baso % (Auto) 0 (0-1) % Sodium 138 L (140-148) mmol/L Potassium 3.8 (3.6-5.2) mmol/L Chloride 108 (100-108) mmol/L Carbon Dioxide 23 (21-32) mmol/L Anion Gap 10.8 (5.0-14.0) mmol/L BUN 9 (7-18) mg/dL Creatinine 0.7 (0.6-1.0) mg/dL Est Cr Clr Drug Dosing 94.10 mL/min Estimated GFR (MDRD) > 60 (>60) Glucose 83 (74-106) mg/dL Uric Acid 4.5 (2.6-6.2) mg/dL Calcium 7.4 L (8.5-10.1) mg/dL Total Bilirubin 0.1 L (0.2-1.0) mg/dL AST 15 (15-37) U/L ALT 11 L (12-78) U/L Alkaline Phosphatase 98 (46-116) U/L Total Protein 4.8 L (6.4-8.2) g/dL Albumin 1.5 L (3.4-5.0) g/dL Globulin 3.3 (2.3-3.5) g/dL Albumin/Globulin Ratio 0.5 L (1.2-2.2) Urine Color Urine Appearance Urine pH (4.5-8.0) Ur Specific [place] (1.008-1.030) Urine Protein (NEGATIVE) mg/dL Urine Glucose (UA) (NEGATIVE) mg/dL Urine Ketones (NEGATIVE) mg/dL Urine Occult Blood (NEGATIVE) Urine Nitrite (NEGATIVE) Urine Bilirubin (NEGATIVE) Urine Urobilinogen (NORMAL) mg/dL Ur Leukocyte Esterase (NEGATIVE) Urine RBC (0-5) Urine WBC (0-5) Ur Epithelial Cells Amorphous Sediment Urine Bacteria Urine Mucus Ur Random Creatinine (20.0-370.0) mg/dL U Random Total Protein (6.0-11.9) mg/dL Protein/Creatinin Ratio (21.0-161.0) mg/g Urine Opiates Screen (NEGATIVE) Ur Oxycodone Screen (NEGATIVE) Urine Methadone Screen (NEGATIVE) Ur Propoxyphene Screen (NEGATIVE) Ur Barbiturates Screen (NEGATIVE) Ur Tricyclics Screen (NEGATIVE) Ur Phencyclidine Scrn (NEGATIVE) Ur Amphetamine Screen (NEGATIVE) U Methamphetamines Scrn (NEGATIVE) Urine MDMA Screen (NEGATIVE) U Benzodiazepines Scrn (NEGATIVE) U Cocaine Metab Screen (NEGATIVE) U Marijuana (THC) Screen (NEGATIVE) Med Orders - Current: Current Medications Acetaminophen (Tylenol) 650 mg PO Q6H PRN PRN Reason: Pain Last Admin: 02/11/17 05:42 Dose: 650 mg Lactated Ringer's (Ringers, Lactated) 1,000 mls @ 125 mls/hr IV ASDIRECTED PHILIP Last Admin: 02/11/17 06:14 Dose: 125 mls/hr Labetalol HCl (Normodyne) 100 mg PO BID [facility] Last Admin: 02/10/17 22:00 Dose: Not Given Nicotine (Nicotrol) 10 mg INH ASDIRECTED PRN PRN Reason: Withdrawal Symptoms Nitrofurantoin Macrocrystals (Macrodantin) 50 mg PO BEDTIME PHILIP Last Admin: 02/10/17 22:01 Dose: 50 mg Sodium Chloride (Saline Flush) 10 ml FLUSH ASDIRECTED PRN PRN Reason: Keep Vein Open Zolpidem Tartrate (Ambien) 5 mg PO BEDTIME PRN PRN Reason: Sleep Discontinued Medications Hydroxyzine HCl (Vistaril) 100 mg IM ONETIME ONE Stop: 02/10/17 21:04 Last Admin: 02/10/17 22:47 Dose: 100 mg Labetalol HCl (Normodyne) 20 mg IVPUSH NOW ONE PRN Reason: Protocol Stop: 02/10/17 15:04 Last Admin: 02/10/17 15:45 Dose: 20 mg Labetalol HCl (Normodyne) 0 mg IVPUSH NOW ONE PRN Reason: Protocol Stop: 02/10/17 15:16 Last Admin: 02/10/17 16:45 Dose: 20 mg Nicotine (Nicotrol) 10 mg INH ASDIRECTED PRN PRN Reason: Withdrawal Symptoms Last Admin: 02/10/17 21:08 Dose: 10 mg - Exam General: alert, oriented HEENT: Pupils equal, Pupils reactive, EOMI, Mucous membr. moist/pink Neck: supple Lungs: Clear to Auscultation, Normal Respiratory Effort Cardiovascular: Regular Rate, Regular Rhythm GI/Abdominal Exam: Normal Bowel Sounds, Soft, Non-Tender, No Organomegaly, No Distention, No Abnormal Bruit Back Exam: Normal Inspection, Full Range of Motion Extremities: Normal Inspection, Normal Range of Motion, Non-Tender, No Pedal Edema, Normal Capillary Refill Skin: warm, dry, intact Neurological: no new focal deficit Psy/Mental Status: alert, normal affect, normal mood - Problem List & Annotations (1) High risk due to maternal drug abuse in third trimester SNOMED Code(s): 905833229, 617504524 Code(s): O99.323 - DRUG USE COMPLICATING , THIRD TRIMESTER; F19.90 - OTHER PSYCHOACTIVE SUBSTANCE USE, UNSPECIFIED, UNCOMPLICATED Status: Acute Current Visit: Yes (2) High-risk , multigravida in woman 35 years of age or older SNOMED Code(s): 59043955, 047303189 Code(s): O09.529 - SUPERVISION OF ELDERLY MULTIGRAVIDA, UNSPECIFIED TRIMESTER Status: Acute Current Visit: Yes (3) Chronic UTI (urinary tract infection) SNOMED Code(s): 235648238 Code(s): N39.0 - URINARY TRACT INFECTION, SITE NOT SPECIFIED Status: Acute Current Visit: Yes (4) History of delivery SNOMED Code(s): 197239062 Code(s): Z87.51 - PERSONAL HISTORY OF PRE-TERM LABOR Status: Acute Current Visit: Yes (5) Gestational hypertension SNOMED Code(s): 73323330 Code(s): O13.9 - GESTATIONAL HTN W/O SIGNIFICANT PROTEINURIA, UNSP TRIMESTER Status: Acute Current Visit: No Qualifiers: Trimester: third trimester Qualified Code(s): O13.3 - Gestational [ -induced] hypertension without significant proteinuria, third trimester - Problem List Review Problem List Initiated/Reviewed/Updated: Yes - My Orders Last 24 Hours: My Active Orders 02/10/17 14:42 OB Check [OM.PC] Click to Edit 02/10/17 14:53 Peripheral IV Care [RC] . DIRECTED Sodium Chloride 0.9% [Saline Flush] 10 ml FLUSH ASDIRECTED PRN Peripheral IV Insertion Adult [OM.PC] Routine 02/10/17 15:00 Lactated Ringers [Ringers, Lactated] 1,000 ml IV ASDIRECTED 02/10/17 15:32 OB Ltd 1 or More Fetus [US] Routine 02/10/17 18:00 PROTEIN,URINE 24HR [URCHEM] Routine 02/10/17 19:40 Labetalol [Normodyne] 100 mg PO BID 02/10/17 20:18 Acetaminophen [Tylenol] 650 mg PO Q6H PRN 02/10/17 21:00 Nitrofurantoin Macrocrystal [Macrodantin] 50 mg PO BEDTIME 02/10/17 21:03 Zolpidem [Ambien] 5 mg PO BEDTIME PRN 02/11/17 07:11 Nicotine [Nicotrol] 10 mg INH ASDIRECTED PRN - Assessment Assessment:: 02/10/2017 36 yo @ 35 3/7 weeks gestation, was seen in the clinic today for her weekly NST and was noted to have high BP-170/94, 168/90, was sent over to L&D for monitoring and lab work and US Plan- Monitor BP LR 125 ml/hr CBC, CMP, Uric Acid, UDS, UA Labetalol 20mg IVP now Monitor FHTs BPP with size Will evaluate after results are back 02/10/2017 BPP done with size-Fetus measuring symmetrically small at 32 weeks when should be 35 3/7 wks BPP 03/01 Labs not HELLP or preeclampsia-did have Protein in urine but has whole Patient admitted that she has not been taking her labetalol Dagmar phoned for consult. Dr. Arana states to keep patient overnight, 24hr urine, BUN and creatnine are currently stable. Start back on labetalol, then have patient come for biweekly NST with BPP till 37 weeks then perform RCS at this time and place patient on bedrest 02/10/2017 Patient is now refusing to maintain bedrest and wants to go outside and smoke. Explained risks and benefits, have offered nicotrol inhaler and medications to help with sleep Patient states she doesn't think that will work Patient told if she decided to leave she would be leaving AMA 02/11/2017 Patient was compliant and stayed through the night. She is in much better spirits today and states that she will stay till end of 24 hrs. Education done again on bedrest and how important taking her medications is. CBC CMP done today and still stable Will plan discharge if after 24 hr urine is complete - Plan Plan:: 02/10/2017 Initiate 24 hour urine CBC, CMP, uric acid again tomorrow Continue to monitor Vital signs Initiate oral labetalol Intermittent FHTs Bed rest Will plan discharge when 24 hour urine is complete 02/10/2017 Encourage patient to maintain bedrest and to use nicotrol inhaler If patient leaves have her sign AMA papers 02/11/2017 Encourage patient to maintain bedrest Salvatore pack to be ordered 24 hr urine done at 1430 Patient to start biweekly visits Tuesday with BPP and NST Continue intermittent FHTs Continue monitoring vital signs Plan for discharge after 24 hr urine complete
--- NOTE | 2017-02-11 09:25 | US ---
OB Ltd 1 or More Fetus, BPP w NST HISTORY: Hypertension. COMPARISON: OB ultrasound 11/04/2016. FINDINGS: Biophysical profile score is 8 out of 8. There is a single live intrauterine gestation. Composite ultrasound age 32 weeks 1 day. Estimated da te of confinement is 04/06/2017. In the interval from the prior study there is been some significant slowing of growth. Ultrasound dates are 3 weeks and 2 days behind clinical dates. The biparietal andrez meter, head circumference and femur length are in the less than 2 percentile. Abdominal circumferenc e is 9 percentile. Estimated weight is 1975 g which is in the less than 2 percentile. Position is cephalic and heart rate 155 bpm. Amniotic fluid volume index is 9.0. Placenta post erior. Cervical length not seen. Impression: 1. Biophysical profile score is normal 8 out of 8. 2. Findings suggest symmetric intrauterine growth retardation. The biparietal diameter, head circumf erence and femur length are in the less than 2 percentile. This is a new finding from the prior ultr asound of 11/04/2016.
--- NOTE | 2017-02-11 17:03 | PCM.LDHP ---
L&D History of Present Illness - General Date of Service: 02/11/17 Admit Problem/Dx: Patient Status Order with Admit Dx/Problem 02/10/17 17:00 Patient Status [ADT] Routine Admission Diagnosis/Problem Admission Diagnosis/Problem Hypertension Source of Information: Patient History Limitations: Reports: No Limitations - History of Present Illness Pain Score: 7 - Related Data Allergies/Adverse Reactions: Allergies Allergy/AdvReac Type Severity Reaction Status Date / Time morphine AdvReac Vomiting Verified 10/18/16 14:20 Penicillins AdvReac Nausea and Verified 10/18/16 14:20 Vomiting Home Medications: Home Meds Cranberry 500 mg PO DAILY PRN 09/30/13 [History] Garlic 2 cap PO TID 09/30/13 [History] #103/Iron Fumarate/Fa [ ] 1 tab PO BEDTIME 07/28/16 [ History] Labetalol [Normodyne] 100 mg PO BID 01/20/17 [History] Vit B12/Fa/Pyridoxine HCl/AA15 [Glycotrol] 1 each PO DAILY 01/20/17 [History] Albuterol [IJD: Albuterol HFA] 1 puff INH Q4H PRN 02/10/17 [History] Past Medical History Cardiovascular History: Reports: Hypertension Respiratory History: Reports: Asthma Gastrointestinal History: Reports: Bowel Obstruction Other Gastrointestinal History: 2006. 2 tumors Genitourinary History: Reports: UTI, Recurrent [employer] History: Reports: Endometriosis Other OB/BYN History: cervical CA Neurological History: Reports: Migraines Psychiatric History: Reports: ADHD, Addiction, Anxiety Oncologic (Cancer) History: Reports: Cervix - Past Surgical History Other HEENT Surgeries/Procedures: teeth removed as child. Tooth removal. Wears a flipper Cardiovascular Surgical History: Reports: None GI Surgical History: Reports: Cholecystectomy, EGD Female Surgical History: Reports: Section Social & Family History - Tobacco Use Smoking Status *Q: Current Every Day Smoker Years of Tobacco use: 21 Packs/Tins Daily: 0.5 Used Tobacco, but Quit: No Second Hand Smoke Exposure: Yes - Caffeine Use Caffeine Use: Reports: Coffee Other Caffeine Use: 1-2 cups per day - Alcohol Use Days Per Week of Alcohol Use: 0 - Recreational Drug Use Recreational Drug Use: Yes Drug Use in Last 12 Months: Yes Recreational Drug Type: Reports: Marijuana/Hashish Recreational Drug Use Frequency: Not Used In Over 1 Year H&P Review of Systems - Review of Systems: Review Of Systems: See Below General: Reports: No Symptoms HEENT: Reports: No Symptoms Pulmonary: Reports: No Symptoms Cardiovascular: Reports: No Symptoms Gastrointestinal: Reports: No Symptoms Genitourinary: Reports: No Symptoms Musculoskeletal: Reports: No Symptoms Skin: Reports: No Symptoms Psychiatric: Reports: No Symptoms Neurological: Reports: No Symptoms Hematologic/Lymphatic: Reports: No Symptoms Immunologic: Reports: No Symptoms L&D Exam - Exam Exam: See Below - Vital Signs Vital Signs: Last Vital Signs Temp 36.4 C 02/11/17 08:00 Pulse 68 02/11/17 08:29 Resp 16 02/11/17 08:00 BP 140/66 02/11/17 09:00 Pulse Ox 98 02/11/17 08:00 Weight: 69.853 kg - OB Specific Contraction Frequency (min): 0 - Exam General: Alert, Oriented HEENT: PERRLA, Conjunctiva Clear, EACs Clear, EOMI, Hearing Intact, Mucosa Moist & [place], Nares Patent, Normal Nasal Septum, Posterior Pharynx Clear, TMs Clear Neck: Supple, Trachea Midline Lungs: Clear to Auscultation, Normal Respiratory Effort Cardiovascular: Regular Rate, Regular Rhythm GI/Abdominal Exam: Normal Bowel Sounds, Soft, Non-Tender, No Organomegaly, No Distention, No Abnormal Bruit, No Mass, Pelvis Stable Genitourinary: Normal external exam, Normal bimanual exam, Normal speculum exam Back Exam: Normal Inspection, Full Range of Motion Extremities: Normal Inspection, Normal Range of Motion, Non-Tender, No Pedal Edema, Normal Capillary Refill Skin: Warm, Dry, Intact Neurological: Cranial Nerves Intact, Reflexes Equal Bilateral DTR: 2+: Patella (L), Patella (R) Psychiatric: Alert, Normal Affect, Normal Mood - Patient Data Lab Results Last 24 hrs: Laboratory Results - last 24 hr 02/10/17 02/10/17 02/10/17 Range/Units 15:24 17:00 18:06 WBC (4.5-11.0) K/uL RBC (3.30-5.50) M/uL Hgb (12.0-15.0) g/dL Hct (36.0-48.0) % MCV (80-98) fL MCH (27-31) pg MCHC (32-36) % Plt Count (150-400) K/uL Neut % (Auto) (36-66) % Lymph % (Auto) (24-44) % [place] % (Auto) (2-6) % Eos % (Auto) (2-4) % Baso % (Auto) (0-1) % Sodium (140-148) mmol/L Potassium (3.6-5.2) mmol/L Chloride (100-108) mmol/L Carbon Dioxide (21-32) mmol/L Anion Gap (5.0-14.0) mmol/L BUN (7-18) mg/dL Creatinine (0.6-1.0) mg/dL Est Cr Clr Drug Dosing mL/min Estimated GFR (MDRD) (>60) Glucose (74-106) mg/dL Uric Acid 4.6 (2.6-6.2) mg/dL Calcium (8.5-10.1) mg/dL Total Bilirubin (0.2-1.0) mg/dL AST (15-37) U/L ALT (12-78) U/L Alkaline Phosphatase (46-116) U/L Total Protein (6.4-8.2) g/dL Albumin (3.4-5.0) g/dL Globulin (2.3-3.5) g/dL Albumin/Globulin Ratio (1.2-2.2) Ur Random Creatinine 185.0 (20.0-370.0) mg/dL U Random Total Protein 1100.0 H (6.0-11.9) mg/dL Ur Collection Duration 24 hrs Urine Total Volume 2600 mls Ur Total Protein Conc 241 mg/dL Ur Total Protein 24 Hr 6266.0 H (0.0-149.1) mg/Day Protein/Creatinin Ratio 5945.9 H (21.0-161.0) mg/g Urine Opiates Screen (NEGATIVE) Ur Oxycodone Screen (NEGATIVE) Urine Methadone Screen (NEGATIVE) Ur Propoxyphene Screen (NEGATIVE) Ur Barbiturates Screen (NEGATIVE) Ur Tricyclics Screen (NEGATIVE) Ur Phencyclidine Scrn (NEGATIVE) Ur Amphetamine Screen (NEGATIVE) U Methamphetamines Scrn (NEGATIVE) Urine MDMA Screen (NEGATIVE) U Benzodiazepines Scrn (NEGATIVE) U Cocaine Metab Screen (NEGATIVE) U Marijuana (THC) Screen (NEGATIVE) 02/10/17 02/11/17 02/11/17 Range/Units 18:06 05:10 05:10 WBC 12.0 H (4.5-11.0) K/uL RBC 2.80 L (3.30-5.50) M/uL Hgb 9.5 L (12.0-15.0) g/dL Hct 27.6 L (36.0-48.0) % MCV 99 H (80-98) fL MCH 34 H (27-31) pg MCHC 34 (32-36) % Plt Count 205 (150-400) K/uL Neut % (Auto) 60 (36-66) % Lymph % (Auto) 25 (24-44) % [place] % (Auto) 13 H (2-6) % Eos % (Auto) 2 (2-4) % Baso % (Auto) 0 (0-1) % Sodium 138 L (140-148) mmol/L Potassium 3.8 (3.6-5.2) mmol/L Chloride 108 (100-108) mmol/L Carbon Dioxide 23 (21-32) mmol/L Anion Gap 10.8 (5.0-14.0) mmol/L BUN 9 (7-18) mg/dL Creatinine 0.7 (0.6-1.0) mg/dL Est Cr Clr Drug Dosing 94.10 mL/min Estimated GFR (MDRD) > 60 (>60) Glucose 83 (74-106) mg/dL Uric Acid 4.5 (2.6-6.2) mg/dL Calcium 7.4 L (8.5-10.1) mg/dL Total Bilirubin 0.1 L (0.2-1.0) mg/dL AST 15 (15-37) U/L ALT 11 L (12-78) U/L Alkaline Phosphatase 98 (46-116) U/L Total Protein 4.8 L (6.4-8.2) g/dL Albumin 1.5 L (3.4-5.0) g/dL Globulin 3.3 (2.3-3.5) g/dL Albumin/Globulin Ratio 0.5 L (1.2-2.2) Ur Random Creatinine (20.0-370.0) mg/dL U Random Total Protein (6.0-11.9) mg/dL Ur Collection Duration hrs Urine Total Volume mls Ur Total Protein Conc mg/dL Ur Total Protein 24 Hr (0.0-149.1) mg/Day Protein/Creatinin Ratio (21.0-161.0) mg/g Urine Opiates Screen Negative (NEGATIVE) Ur Oxycodone Screen Negative (NEGATIVE) Urine Methadone Screen Negative (NEGATIVE) Ur Propoxyphene Screen Negative (NEGATIVE) Ur Barbiturates Screen Negative (NEGATIVE) Ur Tricyclics Screen Negative (NEGATIVE) Ur Phencyclidine Scrn Negative (NEGATIVE) Ur Amphetamine Screen Negative (NEGATIVE) U Methamphetamines Scrn Negative (NEGATIVE) Urine MDMA Screen Negative (NEGATIVE) U Benzodiazepines Scrn Negative (NEGATIVE) U Cocaine Metab Screen Negative (NEGATIVE) U Marijuana (THC) Screen Positive H (NEGATIVE) Result Diagrams: 02/11/17 05:10 02/11/17 05:10 - Problem List (1) High risk due to maternal drug abuse in third trimester SNOMED Code(s): 631544913, 083861353 ICD Code: O99.323 - DRUG USE COMPLICATING , THIRD TRIMESTER; F19.90 - OTHER PSYCHOACTIVE SUBSTANCE USE, UNSPECIFIED, UNCOMPLICATED Status: Acute Current Visit: Yes (2) High-risk , multigravida in woman 35 years of age or older SNOMED Code(s): 97557840, 664455749 ICD Code: O09.529 - SUPERVISION OF ELDERLY MULTIGRAVIDA, UNSPECIFIED TRIMESTER Status: Acute Current Visit: Yes (3) Chronic UTI (urinary tract infection) SNOMED Code(s): 646313433 ICD Code: N39.0 - URINARY TRACT INFECTION, SITE NOT SPECIFIED Status: Acute Current Visit: Yes (4) History of delivery SNOMED Code(s): 001781233 ICD Code: Z87.51 - PERSONAL HISTORY OF PRE-TERM LABOR Status: Acute Current Visit: Yes (5) Gestational hypertension SNOMED Code(s): 78216825 ICD Code: O13.9 - GESTATIONAL HTN W/O SIGNIFICANT PROTEINURIA, UNSP TRIMESTER Status: Acute Current Visit: No Qualifiers: Trimester: third trimester Qualified Code(s): O13.3 - Gestational [ -induced] hypertension without significant proteinuria, third trimester Problem List Initiated/Reviewed/Updated: Yes Orders Last 24hrs: Active Orders 24 hr Category Date Time Status Patient Status [ADT] Routine ADT 02/10/17 17:00 Active Ready for Discharge [RC] PER UNIT ROUTINE Care 02/11/17 14:30 Active Acetaminophen [Tylenol] Med 02/10/17 20:18 Active 650 mg PO Q6H PRN Labetalol [Normodyne] Med 02/10/17 19:40 Active 100 mg PO BID Nicotine [Nicotrol] Med 02/11/17 07:11 Active 10 mg INH ASDIRECTED PRN Nitrofurantoin Macrocrystal [Macrodantin] Med 02/10/17 21:00 Active 50 mg PO BEDTIME Zolpidem [Ambien] Med 02/10/17 21:03 Active 5 mg PO BEDTIME PRN Peripheral IV Discontinue [OM.PC] Routine Oth 02/11/17 14:30 Ordered SALVATORE Hose [Antiembolic Hose] [OM.PC] Routine Oth 02/11/17 08:33 Ordered Medication Orders Acetaminophen (Tylenol) 650 mg PO Q6H PRN PRN Reason: Pain Last Admin: 02/11/17 12:16 Dose: 650 mg Admin: 02/11/17 05:42 Dose: 650 mg Admin: 02/10/17 22:35 Dose: 650 mg Lactated Ringer's (Ringers, Lactated) 1,000 mls @ 125 mls/hr IV ASDIRECTED PHILIP Last Admin: 02/11/17 06:14 Dose: 125 mls/hr Infusion: 02/11/17 06:14 Dose: 125 mls/hr Admin: 02/10/17 22:55 Dose: 125 mls/hr Infusion: 02/10/17 22:55 Dose: 125 mls/hr Admin: 02/10/17 15:15 Dose: 125 mls/hr Labetalol HCl (Normodyne) 100 mg PO BID PHILIP Last Admin: 02/11/17 08:29 Dose: 100 mg Admin: 02/10/17 22:00 Dose: Admin: 02/10/17 19:47 Dose: 100 mg Nicotine (Nicotrol) 10 mg INH ASDIRECTED PRN PRN Reason: Withdrawal Symptoms Nitrofurantoin Macrocrystals (Macrodantin) 50 mg PO BEDTIME [facility]ILIP Last Admin: 02/10/17 22:01 Dose: 50 mg Sodium Chloride (Saline Flush) 10 ml FLUSH ASDIRECTED PRN PRN Reason: Keep Vein Open Zolpidem Tartrate (Ambien) 5 mg PO BEDTIME PRN PRN Reason: Sleep Assessment/Plan Comment:: 02/10/2017 Initiate 24 hour urine CBC, CMP, uric acid again tomorrow Continue to monitor Vital signs Initiate oral labetalol Intermittent FHTs Bed rest Will plan discharge when 24 hour urine is complete 02/10/2017 Encourage patient to maintain bedrest and to use nicotrol inhaler If patient leaves have her sign AMA papers 02/11/2017 Encourage patient to maintain bedrest Salvatore pack to be ordered 24 hr urine done at 1430 Patient to start biweekly visits Tuesday with BPP and NST Continue intermittent FHTs Continue monitoring vital signs Plan for discharge after 24 hr urine complete
--- NOTE | 2017-02-11 17:09 | PCM.DCSUM1 ---
Discharge Summary - Hospital Course HPI Initial Comments: See H&P for OB Brief History: Patient here at 35 3/7 weeks for noncompliance, IUGR, Chronic hypertension, and possible preeclampsia-see admission and progress notes - Discharge Data Discharge Date: 02/11/17 Discharge Disposition: Home, Self-Care 01 Condition: Good - Discharge Diagnosis/Problem(s) (1) High risk due to maternal drug abuse in third trimester SNOMED Code(s): 454520935, 709662986 ICD Code: O99.323 - DRUG USE COMPLICATING , THIRD TRIMESTER; F19.90 - OTHER PSYCHOACTIVE SUBSTANCE USE, UNSPECIFIED, UNCOMPLICATED Status: Acute Current Visit: Yes (2) High-risk , multigravida in woman 35 years of age or older SNOMED Code(s): 52073777, 001626100 ICD Code: O09.529 - SUPERVISION OF ELDERLY MULTIGRAVIDA, UNSPECIFIED TRIMESTER Status: Acute Current Visit: Yes (3) Chronic UTI (urinary tract infection) SNOMED Code(s): 368804259 ICD Code: N39.0 - URINARY TRACT INFECTION, SITE NOT SPECIFIED Status: Acute Current Visit: Yes (4) History of delivery SNOMED Code(s): 912343736 ICD Code: Z87.51 - PERSONAL HISTORY OF PRE-TERM LABOR Status: Acute Current Visit: Yes (5) Gestational hypertension SNOMED Code(s): 19826419 ICD Code: O13.9 - GESTATIONAL HTN W/O SIGNIFICANT PROTEINURIA, UNSP TRIMESTER Status: Acute Current Visit: No Qualifiers: Trimester: third trimester Qualified Code(s): O13.3 - Gestational [ -induced] hypertension without significant proteinuria, third trimester - Patient Summary/Data Labs Pending at D/C: 24 hour urine - Patient Instructions Diet: Regular Diet as Tolerated, Drink 8-10+ Glasses/Day Activity: Bedrest Driving: Do Not Drive Notify Provider of: Fever, Increased Pain, Swelling and Redness, Drainage, Nausea and/or Vomiting - Discharge Plan Home Medications: Home Meds Cranberry 500 mg PO DAILY PRN 09/30/13 [History] Garlic 2 cap PO TID 09/30/13 [History] #103/Iron Fumarate/Fa [ ] 1 tab PO BEDTIME 07/28/16 [ History] Labetalol [Normodyne] 100 mg PO BID 01/20/17 [History] Vit B12/Fa/Pyridoxine HCl/AA15 [Glycotrol] 1 each PO DAILY 01/20/17 [History] Albuterol [IJD: Albuterol HFA] 1 puff INH Q4H PRN 02/10/17 [History] Patient Handouts: Hypertension During Referrals: Balbina Houser CNM [Primary Care Provider] - (TuesdayFebruary 14 1000 February 17 103) - Discharge Summary/Plan Comment DC Time >30 min.: Yes - General Info Admission Dx/Problem (Free Text: Patient Status Order with Admit Dx/Problem 02/10/17 17:00 Patient Status [ADT] Routine Admission Diagnosis/Problem Admission Diagnosis/Problem Hypertension Functional Status: Reports: Pain Controlled - Review of Systems General: Reports: No Symptoms HEENT: Reports: No Symptoms Pulmonary: Reports: No Symptoms Cardiovascular: Reports: No Symptoms Gastrointestinal: Reports: No Symptoms Genitourinary: Reports: No Symptoms Musculoskeletal: Reports: No Symptoms Skin: Reports: No Symptoms Neurological: Reports: No Symptoms Psychiatric: Reports: No Symptoms - Patient Data Vitals - Most Recent: Last Vital Signs Temp 36.4 C 02/11/17 08:00 Pulse 68 02/11/17 08:29 Resp 16 02/11/17 08:00 BP 140/66 02/11/17 09:00 Pulse Ox 98 02/11/17 08:00 Weight - Most Recent: 69.853 kg I&O - Last 24 hours: Intake & Output 02/11/17 02/11/17 02/11/17 06:59 14:59 22:59 Intake Total 2074 240 Output Total 1400 Balance 674 240 Lab Results - Last 24 hrs: Laboratory Results - last 24 hr 02/10/17 02/10/17 02/10/17 Range/Units 15:24 17:00 18:06 WBC (4.5-11.0) K/uL RBC (3.30-5.50) M/uL Hgb (12.0-15.0) g/dL Hct (36.0-48.0) % MCV (80-98) fL MCH (27-31) pg MCHC (32-36) % Plt Count (150-400) K/uL Neut % (Auto) (36-66) % Lymph % (Auto) (24-44) % [place] % (Auto) (2-6) % Eos % (Auto) (2-4) % Baso % (Auto) (0-1) % Sodium (140-148) mmol/L Potassium (3.6-5.2) mmol/L Chloride (100-108) mmol/L Carbon Dioxide (21-32) mmol/L Anion Gap (5.0-14.0) mmol/L BUN (7-18) mg/dL Creatinine (0.6-1.0) mg/dL Est Cr Clr Drug Dosing mL/min Estimated GFR (MDRD) (>60) Glucose (74-106) mg/dL Uric Acid 4.6 (2.6-6.2) mg/dL Calcium (8.5-10.1) mg/dL Total Bilirubin (0.2-1.0) mg/dL AST (15-37) U/L ALT (12-78) U/L Alkaline Phosphatase (46-116) U/L Total Protein (6.4-8.2) g/dL Albumin (3.4-5.0) g/dL Globulin (2.3-3.5) g/dL Albumin/Globulin Ratio (1.2-2.2) Ur Random Creatinine 185.0 (20.0-370.0) mg/dL U Random Total Protein 1100.0 H (6.0-11.9) mg/dL Ur Collection Duration 24 hrs Urine Total Volume 2600 mls Ur Total Protein Conc 241 mg/dL Ur Total Protein 24 Hr 6266.0 H (0.0-149.1) mg/Day Protein/Creatinin Ratio 5945.9 H (21.0-161.0) mg/g Urine Opiates Screen (NEGATIVE) Ur Oxycodone Screen (NEGATIVE) Urine Methadone Screen (NEGATIVE) Ur Propoxyphene Screen (NEGATIVE) Ur Barbiturates Screen (NEGATIVE) Ur Tricyclics Screen (NEGATIVE) Ur Phencyclidine Scrn (NEGATIVE) Ur Amphetamine Screen (NEGATIVE) U Methamphetamines Scrn (NEGATIVE) Urine MDMA Screen (NEGATIVE) U Benzodiazepines Scrn (NEGATIVE) U Cocaine Metab Screen (NEGATIVE) U Marijuana (THC) Screen (NEGATIVE) 02/10/17 02/11/17 02/11/17 Range/Units 18:06 05:10 05:10 WBC 12.0 H (4.5-11.0) K/uL RBC 2.80 L (3.30-5.50) M/uL Hgb 9.5 L (12.0-15.0) g/dL Hct 27.6 L (36.0-48.0) % MCV 99 H (80-98) fL MCH 34 H (27-31) pg MCHC 34 (32-36) % Plt Count 205 (150-400) K/uL Neut % (Auto) 60 (36-66) % Lymph % (Auto) 25 (24-44) % [place] % (Auto) 13 H (2-6) % Eos % (Auto) 2 (2-4) % Baso % (Auto) 0 (0-1) % Sodium 138 L (140-148) mmol/L Potassium 3.8 (3.6-5.2) mmol/L Chloride 108 (100-108) mmol/L Carbon Dioxide 23 (21-32) mmol/L Anion Gap 10.8 (5.0-14.0) mmol/L BUN 9 (7-18) mg/dL Creatinine 0.7 (0.6-1.0) mg/dL Est Cr Clr Drug Dosing 94.10 mL/min Estimated GFR (MDRD) > 60 (>60) Glucose 83 (74-106) mg/dL Uric Acid 4.5 (2.6-6.2) mg/dL Calcium 7.4 L (8.5-10.1) mg/dL Total Bilirubin 0.1 L (0.2-1.0) mg/dL AST 15 (15-37) U/L ALT 11 L (12-78) U/L Alkaline Phosphatase 98 (46-116) U/L Total Protein 4.8 L (6.4-8.2) g/dL Albumin 1.5 L (3.4-5.0) g/dL Globulin 3.3 (2.3-3.5) g/dL Albumin/Globulin Ratio 0.5 L (1.2-2.2) Ur Random Creatinine (20.0-370.0) mg/dL U Random Total Protein (6.0-11.9) mg/dL Ur Collection Duration hrs Urine Total Volume mls Ur Total Protein Conc mg/dL Ur Total Protein 24 Hr (0.0-149.1) mg/Day Protein/Creatinin Ratio (21.0-161.0) mg/g Urine Opiates Screen Negative (NEGATIVE) Ur Oxycodone Screen Negative (NEGATIVE) Urine Methadone Screen Negative (NEGATIVE) Ur Propoxyphene Screen Negative (NEGATIVE) Ur Barbiturates Screen Negative (NEGATIVE) Ur Tricyclics Screen Negative (NEGATIVE) Ur Phencyclidine Scrn Negative (NEGATIVE) Ur Amphetamine Screen Negative (NEGATIVE) U Methamphetamines Scrn Negative (NEGATIVE) Urine MDMA Screen Negative (NEGATIVE) U Benzodiazepines Scrn Negative (NEGATIVE) U Cocaine Metab Screen Negative (NEGATIVE) U Marijuana (THC) Screen Positive H (NEGATIVE) Med Orders - Current: Current Medications Acetaminophen (Tylenol) 650 mg PO Q6H PRN PRN Reason: Pain Last Admin: 02/11/17 12:16 Dose: 650 mg Lactated Ringer's (Ringers, Lactated) 1,000 mls @ 125 mls/hr IV ASDIRECTED [facility] Last Admin: 02/11/17 06:14 Dose: 125 mls/hr Labetalol HCl (Normodyne) 100 mg PO BID [facility] Last Admin: 02/11/17 08:29 Dose: 100 mg Nicotine (Nicotrol) 10 mg INH ASDIRECTED PRN PRN Reason: Withdrawal Symptoms Nitrofurantoin Macrocrystals (Macrodantin) 50 mg PO BEDTIME [facility] Last Admin: 02/10/17 22:01 Dose: 50 mg Sodium Chloride (Saline Flush) 10 ml FLUSH ASDIRECTED PRN PRN Reason: Keep Vein Open Zolpidem Tartrate (Ambien) 5 mg PO BEDTIME PRN PRN Reason: Sleep Discontinued Medications Hydroxyzine HCl (Vistaril) 100 mg IM ONETIME ONE Stop: 02/10/17 21:04 Last Admin: 02/10/17 22:47 Dose: 100 mg Labetalol HCl (Normodyne) 20 mg IVPUSH NOW ONE PRN Reason: Protocol Stop: 02/10/17 15:04 Last Admin: 02/10/17 15:45 Dose: 20 mg Labetalol HCl (Normodyne) 0 mg IVPUSH NOW ONE PRN Reason: Protocol Stop: 02/10/17 15:16 Last Admin: 02/10/17 16:45 Dose: 20 mg Nicotine (Nicotrol) 10 mg INH ASDIRECTED PRN PRN Reason: Withdrawal Symptoms Last Admin: 02/10/17 21:08 Dose: 10 mg - Exam General: Reports: alert, oriented HEENT: Reports: Pupils equal, Pupils reactive, EOMI, Mucous membr. moist/pink Neck: Reports: supple Lungs: Reports: Clear to Auscultation, Normal Respiratory Effort Cardiovascular: Reports: Regular Rate, Regular Rhythm GI/Abdominal Exam: Normal Bowel Sounds, Soft, Non-Tender, No Organomegaly, No Distention, No Abnormal Bruit, No Mass, Pelvis Stable Back Exam: Reports: Normal Inspection, Full Range of Motion Extremities: Normal Inspection, Normal Range of Motion, Non-Tender, No Pedal Edema, Normal Capillary Refill Skin: Reports: warm, dry, intact Neurological: Reports: no new focal deficit Psy/Mental Status: Reports: alert, normal affect, normal mood *Q Meaningful Use (DIS) - VTE *Q VTE Criteria *Q: - Stroke *Q Stroke Criteria *Q: - AMI *Q AMI Criteria *Q:
[2017-02-11 17:21] VITALS: BP 149/65
--- NOTE | 2017-02-11 17:39 | PCM.PN ---
- General Info Date of Service: 02/11/17 - Patient Data Vitals - most recent: Last Vital Signs Temp 36.9 C 02/11/17 12:30 Pulse 68 02/11/17 13:00 Resp 16 02/11/17 08:00 BP 149/65 H 02/11/17 13:00 Pulse Ox 96 02/11/17 13:00 Weight - most recent: 69.853 kg I&O - last 24 hours: Intake & Output 02/11/17 02/11/17 02/11/17 06:59 14:59 22:59 Intake Total 2074 240 Output Total 1400 Balance 674 240 Lab Results last 24 hrs: Laboratory Results - last 24 hr 02/10/17 02/10/17 02/10/17 Range/Units 15:24 17:00 18:06 WBC (4.5-11.0) K/uL RBC (3.30-5.50) M/uL Hgb (12.0-15.0) g/dL Hct (36.0-48.0) % MCV (80-98) fL MCH (27-31) pg MCHC (32-36) % Plt Count (150-400) K/uL Neut % (Auto) (36-66) % Lymph % (Auto) (24-44) % [place] % (Auto) (2-6) % Eos % (Auto) (2-4) % Baso % (Auto) (0-1) % Sodium (140-148) mmol/L Potassium (3.6-5.2) mmol/L Chloride (100-108) mmol/L Carbon Dioxide (21-32) mmol/L Anion Gap (5.0-14.0) mmol/L BUN (7-18) mg/dL Creatinine (0.6-1.0) mg/dL Est Cr Clr Drug Dosing mL/min Estimated GFR (MDRD) (>60) Glucose (74-106) mg/dL Uric Acid 4.6 (2.6-6.2) mg/dL Calcium (8.5-10.1) mg/dL Total Bilirubin (0.2-1.0) mg/dL AST (15-37) U/L ALT (12-78) U/L Alkaline Phosphatase (46-116) U/L Total Protein (6.4-8.2) g/dL Albumin (3.4-5.0) g/dL Globulin (2.3-3.5) g/dL Albumin/Globulin Ratio (1.2-2.2) Ur Random Creatinine 185.0 (20.0-370.0) mg/dL U Random Total Protein 1100.0 H (6.0-11.9) mg/dL Ur Collection Duration 24 hrs Urine Total Volume 2600 mls Ur Total Protein Conc 241 mg/dL Ur Total Protein 24 Hr 6266.0 H (0.0-149.1) mg/Day Protein/Creatinin Ratio 5945.9 H (21.0-161.0) mg/g Urine Opiates Screen (NEGATIVE) Ur Oxycodone Screen (NEGATIVE) Urine Methadone Screen (NEGATIVE) Ur Propoxyphene Screen (NEGATIVE) Ur Barbiturates Screen (NEGATIVE) Ur Tricyclics Screen (NEGATIVE) Ur Phencyclidine Scrn (NEGATIVE) Ur Amphetamine Screen (NEGATIVE) U Methamphetamines Scrn (NEGATIVE) Urine MDMA Screen (NEGATIVE) U Benzodiazepines Scrn (NEGATIVE) U Cocaine Metab Screen (NEGATIVE) U Marijuana (THC) Screen (NEGATIVE) 02/10/17 02/11/17 02/11/17 Range/Units 18:06 05:10 05:10 WBC 12.0 H (4.5-11.0) K/uL RBC 2.80 L (3.30-5.50) M/uL Hgb 9.5 L (12.0-15.0) g/dL Hct 27.6 L (36.0-48.0) % MCV 99 H (80-98) fL MCH 34 H (27-31) pg MCHC 34 (32-36) % Plt Count 205 (150-400) K/uL Neut % (Auto) 60 (36-66) % Lymph % (Auto) 25 (24-44) % [place] % (Auto) 13 H (2-6) % Eos % (Auto) 2 (2-4) % Baso % (Auto) 0 (0-1) % Sodium 138 L (140-148) mmol/L Potassium 3.8 (3.6-5.2) mmol/L Chloride 108 (100-108) mmol/L Carbon Dioxide 23 (21-32) mmol/L Anion Gap 10.8 (5.0-14.0) mmol/L BUN 9 (7-18) mg/dL Creatinine 0.7 (0.6-1.0) mg/dL Est Cr Clr Drug Dosing 94.10 mL/min Estimated GFR (MDRD) > 60 (>60) Glucose 83 (74-106) mg/dL Uric Acid 4.5 (2.6-6.2) mg/dL Calcium 7.4 L (8.5-10.1) mg/dL Total Bilirubin 0.1 L (0.2-1.0) mg/dL AST 15 (15-37) U/L ALT 11 L (12-78) U/L Alkaline Phosphatase 98 (46-116) U/L Total Protein 4.8 L (6.4-8.2) g/dL Albumin 1.5 L (3.4-5.0) g/dL Globulin 3.3 (2.3-3.5) g/dL Albumin/Globulin Ratio 0.5 L (1.2-2.2) Ur Random Creatinine (20.0-370.0) mg/dL U Random Total Protein (6.0-11.9) mg/dL Ur Collection Duration hrs Urine Total Volume mls Ur Total Protein Conc mg/dL Ur Total Protein 24 Hr (0.0-149.1) mg/Day Protein/Creatinin Ratio (21.0-161.0) mg/g Urine Opiates Screen Negative (NEGATIVE) Ur Oxycodone Screen Negative (NEGATIVE) Urine Methadone Screen Negative (NEGATIVE) Ur Propoxyphene Screen Negative (NEGATIVE) Ur Barbiturates Screen Negative (NEGATIVE) Ur Tricyclics Screen Negative (NEGATIVE) Ur Phencyclidine Scrn Negative (NEGATIVE) Ur Amphetamine Screen Negative (NEGATIVE) U Methamphetamines Scrn Negative (NEGATIVE) Urine MDMA Screen Negative (NEGATIVE) U Benzodiazepines Scrn Negative (NEGATIVE) U Cocaine Metab Screen Negative (NEGATIVE) U Marijuana (THC) Screen Positive H (NEGATIVE) Med Orders - Current: Current Medications Discontinued Medications Acetaminophen (Tylenol) 650 mg PO Q6H PRN PRN Reason: Pain Last Admin: 02/11/17 12:16 Dose: 650 mg Hydroxyzine HCl (Vistaril) 100 mg IM ONETIME ONE Stop: 02/10/17 21:04 Last Admin: 02/10/17 22:47 Dose: 100 mg Lactated Ringer's (Ringers, Lactated) 1,000 mls @ 125 mls/hr IV ASDIRECTED [facility] Last Admin: 02/11/17 06:14 Dose: 125 mls/hr Labetalol HCl (Normodyne) 20 mg IVPUSH NOW ONE PRN Reason: Protocol Stop: 02/10/17 15:04 Last Admin: 02/10/17 15:45 Dose: 20 mg Labetalol HCl (Normodyne) 0 mg IVPUSH NOW ONE PRN Reason: Protocol Stop: 02/10/17 15:16 Last Admin: 02/10/17 16:45 Dose: 20 mg Labetalol HCl (Normodyne) 100 mg PO BID [facility] Last Admin: 02/11/17 08:29 Dose: 100 mg Nicotine (Nicotrol) 10 mg INH ASDIRECTED PRN PRN Reason: Withdrawal Symptoms Last Admin: 02/10/17 21:08 Dose: 10 mg Nicotine (Nicotrol) 10 mg INH ASDIRECTED PRN PRN Reason: Withdrawal Symptoms Nitrofurantoin Macrocrystals (Macrodantin) 50 mg PO BEDTIME [facility] Last Admin: 02/10/17 22:01 Dose: 50 mg Sodium Chloride (Saline Flush) 10 ml FLUSH ASDIRECTED PRN PRN Reason: Keep Vein Open Zolpidem Tartrate (Ambien) 5 mg PO BEDTIME PRN PRN Reason: Sleep - Problem List & Annotations (1) High risk due to maternal drug abuse in third trimester SNOMED Code(s): 026175903, 766497408 Code(s): O99.323 - DRUG USE COMPLICATING , THIRD TRIMESTER; F19.90 - OTHER PSYCHOACTIVE SUBSTANCE USE, UNSPECIFIED, UNCOMPLICATED Status: Acute Current Visit: Yes (2) High-risk , multigravida in woman 35 years of age or older SNOMED Code(s): 67689715, 014013119 Code(s): O09.529 - SUPERVISION OF ELDERLY MULTIGRAVIDA, UNSPECIFIED TRIMESTER Status: Acute Current Visit: Yes (3) Chronic UTI (urinary tract infection) SNOMED Code(s): 519354432 Code(s): N39.0 - URINARY TRACT INFECTION, SITE NOT SPECIFIED Status: Acute Current Visit: Yes (4) History of delivery SNOMED Code(s): 059635876 Code(s): Z87.51 - PERSONAL HISTORY OF PRE-TERM LABOR Status: Acute Current Visit: Yes (5) Gestational hypertension SNOMED Code(s): 27413682 Code(s): O13.9 - GESTATIONAL HTN W/O SIGNIFICANT PROTEINURIA, UNSP TRIMESTER Status: Acute Current Visit: No Qualifiers: Trimester: third trimester Qualified Code(s): O13.3 - Gestational [ -induced] hypertension without significant proteinuria, third trimester (6) Pre-eclampsia added to pre-existing hypertension SNOMED Code(s): 13951715 Code(s): O11.9 - PRE-EXISTING HYPERTENSION WITH PRE-ECLAMPSIA, UNSP TRIMESTER Status: Acute Current Visit: Yes - Problem List Review Problem List Initiated/Reviewed/Updated: Yes - My Orders Last 24 Hours: My Active Orders 02/10/17 17:00 Patient Status [ADT] Routine 02/11/17 08:33 SALVATORE Hose [Antiembolic Hose] [OM.PC] Routine 02/11/17 14:30 Ready for Discharge [RC] PER UNIT ROUTINE Peripheral IV Discontinue [OM.PC] Routine - Assessment Assessment:: 02/10/2017 36 yo @ 35 3/7 weeks gestation, was seen in the clinic today for her weekly NST and was noted to have high BP-170/94, 168/90, was sent over to L&D for monitoring and lab work and US Plan- Monitor BP LR 125 ml/hr CBC, CMP, Uric Acid, UDS, UA Labetalol 20mg IVP now Monitor FHTs BPP with size Will evaluate after results are back 02/10/2017 BPP done with size-Fetus measuring symmetrically small at 32 weeks when should be 35 3/7 wks BPP 8/8 Labs not HELLP or preeclampsia-did have Protein in urine but has whole Patient admitted that she has not been taking her labetalol [place] phoned for consult. Dr. Arana states to keep patient overnight, 24hr urine, BUN and creatnine are currently stable. Start back on labetalol, then have patient come for biweekly NST with BPP till 37 weeks then perform RCS at this time and place patient on bedrest 02/10/2017 Patient is now refusing to maintain bedrest and wants to go outside and smoke. Explained risks and benefits, have offered nicotrol inhaler and medications to help with sleep Patient states she doesn't think that will work Patient told if she decided to leave she would be leaving AMA 02/11/2017 Patient was compliant and stayed through the night. She is in much better spirits today and states that she will stay till end of 24 hrs. Education done again on bedrest and how important taking her medications is. CBC CMP done today and still stable Will plan discharge if after 24 hr urine is complete 02/11/2017 Patient left right after submitting 24 hr urine - Plan Plan:: 02/10/2017 Initiate 24 hour urine CBC, CMP, uric acid again tomorrow Continue to monitor Vital signs Initiate oral labetalol Intermittent FHTs Bed rest Will plan discharge when 24 hour urine is complete 02/10/2017 Encourage patient to maintain bedrest and to use nicotrol inhaler If patient leaves have her sign AMA papers 02/11/2017 Encourage patient to maintain bedrest Salvatore hose to be ordered 24 hr urine done at 1430 Patient to start biweekly visits Tuesday with BPP and NST Continue intermittent FHTs Continue monitoring vital signs Plan for discharge after 24 hr urine complete 02/11/2017 24 hour urine back and protein high. Called [facility] and consulted with Dr. Duncan, went over Dr. Arana plan from yesterday and [address] Duncan still agrees with Dr. Arana's plan of care. We will do biweekly BPPs with NST and then perform repeat at 37 weeks. Proteinuria makes her preeclampsia but not severe so do not need to ship to [place], continue with plan of care. Attempted to phone [facility]-no answer and no way of leaving messages.
== END 2017-02-11 14:30 | disposition home or self-care (01) ==
LOC: JP.OBCHECK 14:38 → JP.OB 17:00
PROVIDERS: ADMIT Advanced Practice Midwife; ATTEND Advanced Practice Midwife
DX: O13.3 Gestational [pregnancy-induced] hypertension without significant proteinuria, third trimester (principal); O99.323 Drug use complicating pregnancy, third trimester; O09.523 Supervision of elderly multigravida, third trimester; O23.43 Unspecified infection of urinary tract in pregnancy, third trimester; Z87.51 Personal history of pre-term labor; Z3A.35 35 weeks gestation of pregnancy
CPT/HCPCS: 36415; 76815; 76818; 80053; 80305; 81001; 82570; 84156; 84550; 85025; 96361; 96372; 96374; 96376; 99211; A9270; G0378; J3410; J7120

== ENCOUNTER 2017-02-21 06:02 | Inpatient (IN) | payer MEDICAID ==
[2017-02-21] MEDS ORDERED: Lactated Ringers 1,000 ML IV SCH (07:00)
[2017-02-21] MEDS ORDERED: Oxytocin 10 Units/1 ML SDV ONE ×2 (07:26→07:28)
[2017-02-21] MEDS ORDERED: ePHEDrine 50 MG/ML SDV ONE (07:27)
[2017-02-21] MEDS ORDERED: Sodium Chloride 0.9% 10 ML ONE (07:29)
[2017-02-21] MEDS: ceFAZolin 2 GM in Premix Bag 1 BAG IV ONE ×2 (08:19→11:03)
[2017-02-21] MEDS ORDERED: Ondansetron 4 MG/2 ML SDV ONE (08:26)
[2017-02-21] MEDS ORDERED: fentaNYL 100 MCG/2 ML SDV ONE ×2 (08:27→08:38)
[2017-02-21] MEDS ORDERED: Naloxone 0.4 MG/ML SDV IVPUSH PRN (09:10)
[2017-02-21] MEDS ORDERED: Albuterol 8 GM Inhaler INH PRN (09:16)
[2017-02-21] MEDS ORDERED: hydrOXYzine HCl 100 MG/2 ML SDV IM PRN (09:17)
[2017-02-21] MEDS: fentaNYL/Normal Saline 600 MCG/30 ML PCA Vial IV PRN ×2 (09:19→15:16)
[2017-02-21] MEDS ORDERED: hydrOXYzine HCl 100 MG/2 ML SDV IM ONE (09:50)
[2017-02-21] MEDS: Hydrochlorothiazide 25 MG Tab PO SCH (11:24)
[2017-02-21] MEDS: Lisinopril 20 MG Tab PO SCH (11:24)
[2017-02-21] MEDS: D5 1/2 NS w/ 20 mEq/L KCl 1,000 ML IV SCH ×2 (12:15→19:54)
[2017-02-21] MEDS ORDERED: Nicotine 10 MG/Cartridge Inhaler 168 Cartridges/Box INH PRN (12:34)
[2017-02-21] MEDS: hydrOXYzine HCl 100 MG/2 ML SDV IM PRN ×3 (13:43→22:27)
--- NOTE | 2017-02-21 14:35 | OR ---
DATE OF PROCEDURE: 02/21/2017 PREOPERATIVE DIAGNOSIS: Intrauterine growth restriction, 37 weeks gestation , preeclampsia, prior section. POSTOPERATIVE DIAGNOSIS: Intrauterine growth restriction, 37 weeks gestation , preeclampsia, prior section. PROCEDURE: Repeat section. SURGEON: Wild King MD. ELEPHANT TAMER: Balbina Houser, certified nurse business development specialist. Per [employer] standard of care guidelines, this procedure requires a office assistant receptionist. ANESTHESIA: Subarachnoid block. INDICATION: This 36-year-old white female is at 37 weeks gestation. She has preeclampsia. She has intrauterine growth retardation; it is felt she needs to undergo a repeat section at this time. Prior delivery was by section. I counseled her for the procedure including risks and alternatives, and she gave her informed consent to proceed. DESCRIPTION OF PROCEDURE: After adequate spinal anesthesia was obtained, the patient had a Brito catheter placed and a wedge was placed under her right flank. Her abdomen was prepped and draped in the usual sterile fashion. Time-out was held. An incision was made through her existing Pfannenstiel scar. This was carried deep to the fascia using Bovie cautery. The fascia was incised transversely. Upper and lower subfascial flaps were developed from the umbilicus to the pubis. The muscles and peritoneum in the midline were elevated and incised. This incision was extended superiorly and inferiorly to the length of the flaps using Bovie cautery while protecting underlying structures. The bladder flap was dissected free from the lower uterine segment. A transverse lower uterine segment incision was made releasing normal-appearing amniotic fluid. The incision was extended laterally in both directions bluntly. The child's head was delivered. Balbina Houser aspirated its nose and mouth free. The child's body was delivered. This was found to be a baby boy, ultimately shown to have scores of nine and nine. The cord was doubly clamped and divided, and Balbina Houser attended to the child. Cord blood was collected. The uterus was delivered up onto the anterior abdominal wall. The placenta was delivered. It appeared to have a 3- vessel cord. Residual membranes were removed. Ten units of Pitocin was directly injected into the uterine body and IV Pitocin was given by the Anesthesia Service. The transverse lower uterine segment incision was then closed with a running locking stitch of #1 Vicryl. A second running locking stitch of #1 Vicryl was placed over the first to furthermost the closure. The retrouterine space was irrigated and suctioned dry. The bladder flap was re- attached up over the lower uterine segment with a running stitch of #1 Vicryl. The uterus was returned to the abdominal cavity. All looked well. The muscles and peritoneum in the midline were closed with a running stitch of #2 Vicryl. The incision was irrigated and suctioned dry. The fascia was closed with a running stitch of #2 Vicryl. The incision was irrigated and suctioned dry. The skin was approximated with a subcuticular stitch of 4-0 Vicryl. Dermabond was applied. The patient tolerated the procedure well and was brought to the recovery room in good condition. Wild King MD /[id number] MTDD
[2017-02-21] MEDS ORDERED: Ketorolac 60 MG/2 ML SDV IM STA (19:39)
[2017-02-22] MEDS: Ketorolac 30 MG/ML SDV IM SCH ×2 (02:13→08:04)
[2017-02-22] MEDS: fentaNYL/Normal Saline 600 MCG/30 ML PCA Vial IV PRN (02:52)
[2017-02-22] MEDS: D5 1/2 NS w/ 20 mEq/L KCl 1,000 ML IV SCH (04:00)
[2017-02-22] MEDS ORDERED: Acetaminophen/HYDROcodone 325-5 MG Tab PO PRN (06:35)
--- NOTE | 2017-02-22 06:41 | PCM.SURGPN ---
- General Info Date of Service: 02/22/17 Date of Surgery/Procedure: 02/21/17 POD#: 1 Post-Op Diagnosis: section Admission Diagnosis/Problem: section Functional Status: Reports: Pain Controlled, Tolerating Diet, Ambulating, Urinating (Brito in place.), Incentive Spirometry - Review of Systems General: Reports: No Symptoms HEENT: Reports: No Symptoms Pulmonary: Reports: No Symptoms Cardiovascular: Reports: No Symptoms Gastrointestinal: Reports: No Symptoms. Denies: Flatus, Nausea, Vomiting Genitourinary: Reports: No Symptoms Musculoskeletal: Reports: No Symptoms Skin: Reports: No Symptoms Neurological: Reports: No Symptoms Psychiatric: Reports: No Symptoms - Patient Data Vitals - Most Recent: Last Vital Signs Temp 97.5 F 02/22/17 02:27 Pulse 62 02/22/17 02:27 Resp 14 02/22/17 02:27 BP 111/65 02/22/17 02:27 Pulse Ox 97 02/22/17 02:27 Weight - Most Recent: 155 lb 0.2 oz I&O - Last 24 Hours: Intake & Output 02/21/17 02/21/17 02/22/17 14:59 22:59 06:59 Intake Total 2165 1380 Output Total 750 975 950 Balance -750 1190 430 Lab Results Last 24 Hrs: Laboratory Results - last 24 hr 02/21/17 02/21/17 02/21/17 Range/Units 06:15 06:15 06:20 WBC (4.5-11.0) K/uL RBC (3.30-5.50) M/uL Hgb (12.0-15.0) g/dL Hct (36.0-48.0) % MCV (80-98) fL MCH (27-31) pg MCHC (32-36) % Plt Count (150-400) K/uL Sodium (140-148) mmol/L Potassium (3.6-5.2) mmol/L Chloride (100-108) mmol/L Carbon Dioxide (21-32) mmol/L Anion Gap (5.0-14.0) mmol/L BUN (7-18) mg/dL Creatinine (0.6-1.0) mg/dL Est Cr Clr Drug Dosing mL/min Estimated GFR (MDRD) (>60) Glucose (74-106) mg/dL Calcium (8.5-10.1) mg/dL Total Bilirubin (0.2-1.0) mg/dL AST (15-37) U/L ALT (12-78) U/L Alkaline Phosphatase (46-116) U/L Total Protein (6.4-8.2) g/dL Albumin (3.4-5.0) g/dL Globulin (2.3-3.5) g/dL Albumin/Globulin Ratio (1.2-2.2) Urine Color Yellow Urine Appearance Cloudy Urine pH 7.0 (4.5-8.0) Ur Specific [place] 1.010 (1.008-1.030) Urine Protein 500 H (NEGATIVE) mg/dL Urine Glucose (UA) Normal (NEGATIVE) mg/dL Urine Ketones Negative (NEGATIVE) mg/dL Urine Occult Blood Large (NEGATIVE) Urine Nitrite Negative (NEGATIVE) Urine Bilirubin Negative (NEGATIVE) Urine Urobilinogen Normal (NORMAL) mg/dL Ur Leukocyte Esterase Negative (NEGATIVE) Urine Opiates Screen Negative (NEGATIVE) Ur Oxycodone Screen Negative (NEGATIVE) Urine Methadone Screen Negative (NEGATIVE) Ur Propoxyphene Screen Negative (NEGATIVE) Ur Barbiturates Screen Negative (NEGATIVE) Ur Tricyclics Screen Negative (NEGATIVE) Ur Phencyclidine Scrn Negative (NEGATIVE) Ur Amphetamine Screen Negative (NEGATIVE) U Methamphetamines Scrn Negative (NEGATIVE) Urine MDMA Screen Negative (NEGATIVE) U Benzodiazepines Scrn Negative (NEGATIVE) U Cocaine Metab Screen Negative (NEGATIVE) U Marijuana (THC) Screen Negative (NEGATIVE) Blood Type A POSITIVE Gel Antibody Screen Negative 02/21/17 02/21/17 02/22/17 Range/Units 06:20 17:10 04:45 WBC 23.1 H 18.7 H (4.5-11.0) K/uL RBC 3.19 L 2.88 L (3.30-5.50) M/uL Hgb 10.6 L 10.0 L (12.0-15.0) g/dL Hct 31.2 L 28.5 L (36.0-48.0) % MCV 98 99 H (80-98) fL MCH 33 H 35 H (27-31) pg MCHC 34 35 (32-36) % Plt Count 229 218 (150-400) K/uL Sodium 136 L (140-148) mmol/L Potassium 3.8 (3.6-5.2) mmol/L Chloride 105 (100-108) mmol/L Carbon Dioxide 22 (21-32) mmol/L Anion Gap 12.8 (5.0-14.0) mmol/L BUN 11 (7-18) mg/dL Creatinine 0.7 (0.6-1.0) mg/dL Est Cr Clr Drug Dosing 96.87 mL/min Estimated GFR (MDRD) > 60 (>60) Glucose 83 (74-106) mg/dL Calcium 8.2 L (8.5-10.1) mg/dL Total Bilirubin 0.1 L (0.2-1.0) mg/dL AST 20 (15-37) U/L ALT 4 L (12-78) U/L Alkaline Phosphatase 115 (46-116) U/L Total Protein 5.8 L (6.4-8.2) g/dL Albumin 1.9 L (3.4-5.0) g/dL Globulin 3.9 H (2.3-3.5) g/dL Albumin/Globulin Ratio 0.5 L (1.2-2.2) Urine Color Urine Appearance Urine pH (4.5-8.0) Ur Specific [place] (1.008-1.030) Urine Protein (NEGATIVE) mg/dL Urine Glucose (UA) (NEGATIVE) mg/dL Urine Ketones (NEGATIVE) mg/dL Urine Occult Blood (NEGATIVE) Urine Nitrite (NEGATIVE) Urine Bilirubin (NEGATIVE) Urine Urobilinogen (NORMAL) mg/dL Ur Leukocyte Esterase (NEGATIVE) Urine Opiates Screen (NEGATIVE) Ur Oxycodone Screen (NEGATIVE) Urine Methadone Screen (NEGATIVE) Ur Propoxyphene Screen (NEGATIVE) Ur Barbiturates Screen (NEGATIVE) Ur Tricyclics Screen (NEGATIVE) Ur Phencyclidine Scrn (NEGATIVE) Ur Amphetamine Screen (NEGATIVE) U Methamphetamines Scrn (NEGATIVE) Urine MDMA Screen (NEGATIVE) U Benzodiazepines Scrn (NEGATIVE) U Cocaine Metab Screen (NEGATIVE) U Marijuana (THC) Screen (NEGATIVE) Blood Type Gel Antibody Screen 02/22/17 Range/Units 04:45 WBC (4.5-11.0) K/uL RBC (3.30-5.50) M/uL Hgb (12.0-15.0) g/dL Hct (36.0-48.0) % MCV (80-98) fL MCH (27-31) pg MCHC (32-36) % Plt Count (150-400) K/uL Sodium 134 L (140-148) mmol/L Potassium 4.8 (3.6-5.2) mmol/L Chloride 106 (100-108) mmol/L Carbon Dioxide 22 (21-32) mmol/L Anion Gap 10.8 (5.0-14.0) mmol/L BUN 10 (7-18) mg/dL Creatinine 0.8 (0.6-1.0) mg/dL Est Cr Clr Drug Dosing 84.76 mL/min Estimated GFR (MDRD) > 60 (>60) Glucose 87 (74-106) mg/dL Calcium 7.6 L (8.5-10.1) mg/dL Total Bilirubin (0.2-1.0) mg/dL AST (15-37) U/L ALT (12-78) U/L Alkaline Phosphatase (46-116) U/L Total Protein (6.4-8.2) g/dL Albumin (3.4-5.0) g/dL Globulin (2.3-3.5) g/dL Albumin/Globulin Ratio (1.2-2.2) Urine Color Urine Appearance Urine pH (4.5-8.0) Ur Specific [place] (1.008-1.030) Urine Protein (NEGATIVE) mg/dL Urine Glucose (UA) (NEGATIVE) mg/dL Urine Ketones (NEGATIVE) mg/dL Urine Occult Blood (NEGATIVE) Urine Nitrite (NEGATIVE) Urine Bilirubin (NEGATIVE) Urine Urobilinogen (NORMAL) mg/dL Ur Leukocyte Esterase (NEGATIVE) Urine Opiates Screen (NEGATIVE) Ur Oxycodone Screen (NEGATIVE) Urine Methadone Screen (NEGATIVE) Ur Propoxyphene Screen (NEGATIVE) Ur Barbiturates Screen (NEGATIVE) Ur Tricyclics Screen (NEGATIVE) Ur Phencyclidine Scrn (NEGATIVE) Ur Amphetamine Screen (NEGATIVE) U Methamphetamines Scrn (NEGATIVE) Urine MDMA Screen (NEGATIVE) U Benzodiazepines Scrn (NEGATIVE) U Cocaine Metab Screen (NEGATIVE) U Marijuana (THC) Screen (NEGATIVE) Blood Type Gel Antibody Screen Med Orders - Current: Current Medications Hydrocodone Bitart/Acetaminophen ([place] 325-5 Mg) 1 - 2 tab PO Q4H PRN PRN Reason: Abdominal Pain Albuterol (Ventolin Hfa) 0 gm INH Q4H PRN PRN Reason: Shortness of Breath Fentanyl Citrate (Fentanyl In Ns 20 Mcg/Ml 30 Ml Textile Machine Mechanic) 0 mcg IV ASDIRECTED PRN; Protocol PRN Reason: Pain Last Admin: 02/22/17 02:52 Dose: 600 mcg Hydrochlorothiazide (Hydrochlorothiazide) 25 mg PO DAILY [facility] [place] Last Admin: 02/21/17 11:24 Dose: 25 mg Hydroxyzine HCl (Vistaril) 50 - 100 mg IM Q4H PRN PRN Reason: Nausea Last Admin: 02/21/17 22:27 Dose: 100 mg Potassium Chloride/Dextrose/Sod Cl (D5 1/2 Ns W/ 20 Meq/L Kcl) 1,000 mls @ 25 mls/hr IV ASDIRECTED [facility] [place] Ketorolac Tromethamine (Toradol) 30 mg IM Q6H [facility] [place] Stop: 02/26/17 23:59 Last Admin: 02/22/17 02:13 Dose: 30 mg Lisinopril (Prinivil) 20 mg PO DAILY [facility] [place] Last Admin: 02/21/17 11:24 Dose: 20 mg Naloxone HCl (Narcan) 0.1 mg IVPUSH Q2M PRN PRN Reason: Respiratory Distress Nicotine (Nicotrol) 10 mg INH ASDIRECTED PRN PRN Reason: SMOKING CESSATION Last Admin: 02/21/17 16:36 Dose: 10 mg Ondansetron HCl (Zofran) 4 mg IVPUSH Q6H PRN PRN Reason: Nausea/Vomiting Discontinued Medications Ephedrine Sulfate (Ephedrine Sulfate) Confirm Administered Dose 50 mg .ROUTE .STK-MED ONE Stop: 02/21/17 07:28 Fentanyl (Sublimaze) Confirm Administered Dose 100 mcg .ROUTE .STK-MED ONE Stop: 02/21/17 08:28 Fentanyl (Sublimaze) Confirm Administered Dose 100 mcg .ROUTE .STK-MED ONE Stop: 02/21/17 08:39 Hydroxyzine HCl (Vistaril) 50 mg IM Q4H PRN PRN Reason: Nausea Hydroxyzine HCl (Vistaril) 75 mg IM ONETIME ONE Stop: 02/21/17 09:51 Last Admin: 02/21/17 09:41 Dose: 75 mg Lactated Ringer's (Ringers, Lactated) 1,000 mls @ 0 mls/hr IV ASDIRECTED [facility] [place] PRN Reason: KVO Last Admin: 02/21/17 07:19 Dose: 999 mls/hr Cefazolin Sodium/Dextrose 2 gm (/ Premix) 50 mls @ 100 mls/hr IV ONETIME ONE Stop: 02/21/17 08:14 Last Admin: 02/21/17 11:03 Dose: Not Given Sodium Chloride (Normal Saline) Confirm Administered Dose 10 mls @ as directed .ROUTE .STK-MED ONE Stop: 02/21/17 07:30 Potassium Chloride/Dextrose/Sod Cl (D5 1/2 Ns W/ 20 Meq/L Kcl) 1,000 mls @ 125 mls/hr IV ASDIRECTED [facility] [place] Last Admin: 02/22/17 04:00 Dose: 125 mls/hr Ketorolac Tromethamine (Toradol) 60 mg IM ONETIME STA Stop: 02/21/17 19:40 Last Admin: 02/21/17 19:50 Dose: 60 mg Ondansetron HCl (Zofran) Confirm Administered Dose 4 mg .ROUTE .STK-MED ONE Stop: 02/21/17 08:27 Oxytocin (Pitocin) Confirm Administered Dose 10 unit .ROUTE .STK-MED ONE Stop: 02/21/17 07:27 Last Admin: 02/21/17 08:22 Dose: 10 unit Oxytocin (Pitocin) Confirm Administered Dose 10 unit .ROUTE .STK-MED ONE Stop: 02/21/17 07:29 - Exam Wound/Incisions: Healing Well, No Drainage Quality Assessment: Urine Catheter, DVT Prophylaxis General: Alert, Oriented, Cooperative, No Acute Distress Lungs: Clear to Auscultation, Normal Respiratory Effort, Rhonchi Cardiovascular: Regular Rate GI/Abdominal Exam: Normal Bowel Sounds, Soft, Non-Tender, No Organomegaly, No Distention, No Mass Extremities: Normal Inspection, Normal Range of Motion Skin: Warm, Dry, Intact Neurological: No New Focal Deficit Psy/Mental Status: Alert, Normal Affect, Normal Mood - Problem List & Annotations (1) Previous section SNOMED Code(s): 282987499 Code(s): Z98.891 - HISTORY OF UTERINE SCAR FROM PREVIOUS SURGERY Status: Acute Current Visit: Yes - Problem List Review Problem List Initiated/Reviewed/Updated: Yes - My Orders Last 24 Hours: Active Orders 24 hr Category Date Time Status Patient Status [ADT] Routine ADT 02/21/17 09:17 Active Ambulate [RC] ASDIRECTED Care 02/21/17 09:17 Active Antiembolic Devices [RC] .Routine Care 02/21/17 09:22 Active Communication Order [RC] ASDIRECTED Care 02/21/17 17:13 Active Communication Order [RC] ROUTINE Care 02/21/17 09:29 Active Communication Order [RC] STAT Care 02/21/17 09:10 Active DC Brito Catheter [Urinary Catheter Removal] [RC] Per Care 02/22/17 06:34 Ordered Unit Routine Intake and Output [RC] Q12H Care 02/21/17 09:19 Active Notify Provider Intake and Out [RC] PRN Care 02/21/17 09:20 Active Notify Provider Vital Signs [RC] PRN Care 02/21/17 09:19 Active Notify Provider [RC] PRN Care 02/21/17 09:10 Active Oxygen Therapy [RC] PRN Care 02/21/17 09:17 Active AUTOMATIC BOW MAKER MACHINE TENDER Record [RC] Q12H Care 02/21/17 09:10 Active Pulse Oximetry [RC] CONTINUOUS Care 02/21/17 09:10 Active Up With Assistance [RC] ASDIRECTED Care 02/21/17 09:17 Active Up to Chair [RC] ASDIRECTED Care 02/21/17 09:17 Active VTE/DVT Education [RC] Click to Edit Care 02/21/17 09:22 Active Vital Signs [RC] PER UNIT ROUTINE Care 02/21/17 09:17 Active Respiratory Care Assess and Treatment [CONS] Routine Cons 02/21/17 09:17 Active Clear Liquid Diet [DIET] Diet 02/21/17 Dinner Active Regular Diet [DIET] Diet 02/22/17 Breakfast Ordered Acetaminophen/HYDROcodone [[place] 325-5 MG] Med 02/22/17 06:35 Ordered 1 - 2 tab PO Q4H PRN Albuterol [Ventolin HFA] Med 02/21/17 09:16 Active 0 gm INH Q4H PRN D5 1/2 NS w/ 20 mEq/L KCl 1,000 ml Med 02/21/17 09:30 Stop Req IV ASDIRECTED D5 1/2 NS w/ 20 mEq/L KCl 1,000 ml Med 02/22/17 06:45 Ordered IV ASDIRECTED Hydrochlorothiazide Med 02/21/17 12:00 Active 25 mg PO DAILY Ketorolac [Toradol] Med 02/22/17 02:00 Active 30 mg IM Q6H Lisinopril [Prinivil] Med 02/21/17 12:00 Active 20 mg PO DAILY Naloxone [Narcan] Med 02/21/17 09:10 Active 0.1 mg IVPUSH Q2M PRN Nicotine [Nicotrol] Med 02/21/17 12:34 Active 10 mg INH ASDIRECTED PRN Ondansetron [Zofran] Med 02/21/17 09:17 Active 4 mg IVPUSH Q6H PRN fentaNYL/Normal Saline [fentaNYL in NS 20 MCG/ML 30 ML Med 02/21/17 09:10 Active AUTOMATIC BOW MAKER MACHINE TENDER] See Protocol IV ASDIRECTED PRN hydrOXYzine HCl [Vistaril] Med 02/21/17 13:38 Active 50 - 100 mg IM Q4H PRN Abdominal Binder [OM.PC] Per Unit Routine Oth 02/21/17 09:19 Ordered DVT/VTE Prophylaxis Reflex [OM.PC] Per Unit Routine Oth 02/21/17 09:22 Ordered Medication Discontinuation Instructions [OM.PC] Stat Oth 02/21/17 09:10 Ordered Sequential Compression Device [OM.PC] Routine Oth 02/21/17 06:00 Ordered Sequential Compression Device [OM.PC] Routine Oth 02/21/17 09:17 Ordered Resuscitation Status Routine Resus Stat 02/21/17 09:17 Ordered Medication Orders Hydrocodone Bitart/Acetaminophen ([place] 325-5 Mg) 1 - 2 tab PO Q4H PRN PRN Reason: Abdominal Pain Albuterol (Ventolin Hfa) 0 gm INH Q4H PRN PRN Reason: Shortness of Breath Fentanyl Citrate (Fentanyl In Ns 20 Mcg/Ml 30 Ml Textile Machine Mechanic) 0 mcg IV ASDIRECTED PRN; Protocol PRN Reason: Pain Last Admin: 02/22/17 02:52 Dose: 600 mcg Admin: 02/21/17 15:16 Dose: 600 mcg Admin: 02/21/17 09:19 Dose: 20 mcg Hydrochlorothiazide (Hydrochlorothiazide) 25 mg PO DAILY [facility] Last Admin: 02/21/17 11:24 Dose: 25 mg Hydroxyzine HCl (Vistaril) 50 - 100 mg IM Q4H PRN PRN Reason: Nausea Last Admin: 02/21/17 22:27 Dose: 100 mg Admin: 02/21/17 18:19 Dose: 100 mg Admin: 02/21/17 13:43 Dose: 100 mg Potassium Chloride/Dextrose/Sod Cl (D5 1/2 Ns W/ 20 Meq/L Kcl) 1,000 mls @ 25 mls/hr IV ASDIRECTED [facility] Ketorolac Tromethamine (Toradol) 30 mg IM Q6H [facility] Stop: 02/26/17 23:59 Last Admin: 02/22/17 02:13 Dose: 30 mg Lisinopril (Prinivil) 20 mg PO DAILY [facility] [place] Last Admin: 02/21/17 11:24 Dose: 20 mg Naloxone HCl (Narcan) 0.1 mg IVPUSH Q2M PRN PRN Reason: Respiratory Distress Nicotine (Nicotrol) 10 mg INH ASDIRECTED PRN PRN Reason: SMOKING CESSATION Last Admin: 02/21/17 16:36 Dose: 10 mg Ondansetron HCl (Zofran) 4 mg IVPUSH Q6H PRN PRN Reason: Nausea/Vomiting - Assessment Assessment (Free Text/Narrative):: Doing well. - Plan Plan (Free Text/Narrative):: Regular diet. D/C Brito. Oral pain medicine, continue Toradol. TKO IV.
[2017-02-22] MEDS ORDERED: D5 1/2 NS w/ 20 mEq/L KCl 1,000 ML IV SCH (06:45)
[2017-02-22] MEDS: Lisinopril 20 MG Tab PO SCH (08:06)
[2017-02-22] MEDS: Hydrochlorothiazide 25 MG Tab PO SCH (08:06)
[2017-02-22] MEDS ORDERED: traMADol 50 MG Tab PO PRN (09:52)
[2017-02-22] MEDS: Acetaminophen/oxyCODONE 325-5 MG Tab PO PRN ×3 (11:51→23:01)
[2017-02-22] MEDS: Ondansetron 4 MG/2 ML SDV IVPUSH PRN ×2 (17:48→23:01)
[2017-02-23] MEDS: Acetaminophen/oxyCODONE 325-5 MG Tab PO PRN ×2 (03:48→08:02)
[2017-02-23] MEDS: Ondansetron 4 MG/2 ML SDV IVPUSH PRN (08:02)
[2017-02-23] MEDS: Lisinopril 20 MG Tab PO SCH (08:03)
[2017-02-23] MEDS: Hydrochlorothiazide 25 MG Tab PO SCH (08:06)
[2017-02-23 08:23] VITALS: BP 178/73
--- NOTE | 2017-03-25 09:11 | PCM.DCSUM1 ---
Discharge Summary - Hospital Course Free Text/Narrative:: This 36 year old white female was taken to the OR for a repeat section on February 21, 2017. She was at 38 weeks gestation, and was taken early to the OR because of intrauterine growth restriction and pre-eclampsi. A boy with APGARS of 9 and 9 was delivered. Her post operative course was uneventful and she was discharged to home on the second post operative day in good condition. - Discharge Data Discharge Date: 02/23/17 Discharge Disposition: Home, Self-Care 01 Condition: Good - Discharge Diagnosis/Problem(s) (1) Previous section SNOMED Code(s): 673867873 ICD Code: Z98.891 - HISTORY OF UTERINE SCAR FROM PREVIOUS SURGERY Status: Acute - Patient Summary/Data Consults: Consultations 02/21/17 09:17 Respiratory Care Assess and Treatment [CONS] Routine Comment: Physician Instructions: Hospital Course: See above narrative. - Patient Instructions Diet: Regular Diet as Tolerated Activity: As Tolerated, No Lifting Over 10 Pounds Activity, Other: for 6 weeks Driving: Do Not Drive Driving, Other: while on narcotic pain medications Showering/Bathing: May Shower Wound/Incision Care: Keep Operative Site/Wound Site Clean and Dry Notify Provider of: Fever, Increased Pain, Swelling and Redness, Drainage, Nausea and/or Vomiting - Discharge Plan Prescriptions/Med Rec: Acetaminophen/oxyCODONE [Percocet 325-5 MG] 1 - 2 each PO Q4H PRN #30 tab PRN Reason: Pain Acetaminophen/oxyCODONE [Percocet 325-5 MG] 1 - 2 tab PO Q4H PRN #30 tablet PRN Reason: Abdominal Pain Hydrochlorothiazide/Lisinopril [Lisinopril-HCTZ 20-25 MG] 1 tab PO DAILY #30 tab Home Medications: Home Meds Cranberry 500 mg PO DAILY PRN 09/30/13 [History] Garlic 2 cap PO TID 09/30/13 [History] #103/Iron Fumarate/Fa [ ] 1 tab PO BEDTIME 07/28/16 [ History] Vit B12/Fa/Pyridoxine HCl/AA15 [Glycotrol] 1 each PO DAILY 01/20/17 [History] Albuterol [IJD: Albuterol HFA] 1 puff INH Q4H PRN 02/10/17 [History] Docosahexanoic Acid [ Dha] 200 mg PO DAILY 02/17/17 [History] Docusate Sodium [Colace] 200 mg PO DAILY 02/17/17 [History] Ferrous Sulfate 1 tab PO BID 02/17/17 [History] Folic Acid 4 mg PO DAILY 02/17/17 [History] Lactose-Reduced Food [Boost Plus] 237 ml PO BID 02/17/17 [History] Nitrofurantoin Macrocrystal [Nitrofurantoin] 50 mg PO BEDTIME 02/17/17 [History] Ondansetron [Zofran ODT] 4 mg PO Q8H 02/17/17 [History] Pyridoxine HCl 25 mg PO DAILY 02/17/17 [History] SUMAtriptan [Imitrex] 50 mg PO ASDIRECTED 02/17/17 [History] Acetaminophen/oxyCODONE [Percocet 325-5 MG] 1 - 2 each PO Q4H PRN #30 tab [Rx] Acetaminophen/oxyCODONE [Percocet 325-5 MG] 1 - 2 tab PO Q4H PRN #30 tablet 09/10 [Rx] Hydrochlorothiazide 25 mg PO DAILY tablet 02/23/17 [Rx] Hydrochlorothiazide/Lisinopril [Lisinopril-HCTZ 20-25 MG] 1 tab PO DAILY #30 tab 02/23/17 [Rx] Lisinopril [Prinivil] 20 mg PO DAILY tablet 02/23/17 [Rx] Referrals: Wild King MD [Physician] - 03/11/17 1:30 pm (See me in about two weeks for post operative check. ) Balbina Houser CNM [Primary Care Provider] - 02/25/17 3:00 pm (blood pressure checkup ) - Discharge Summary/Plan Comment DC Time >30 min.: Yes Discharge Summary/Plan Comment: See above narrative. - Patient Data Vitals - Most Recent: Last Vital Signs Temp 98.1 F 02/23/17 08:23 Pulse 88 02/23/17 08:23 Resp 16 02/23/17 08:23 BP 178/73 H 02/23/17 08:23 Pulse Ox 94 L 02/23/17 08:23 Weight - Most Recent: 155 lb 0.2 oz Med Orders - Current: Current Medications Discontinued Medications Hydrocodone Bitart/Acetaminophen ([place] 325-5 Mg) 1 - 2 tab PO Q4H PRN PRN Reason: Abdominal Pain Last Admin: 02/22/17 08:05 Dose: 2 tab Albuterol (Ventolin Hfa) 0 gm INH Q4H PRN PRN Reason: Shortness of Breath Ephedrine Sulfate (Ephedrine Sulfate) Confirm Administered Dose 50 mg .ROUTE .STK-MED ONE Stop: 02/21/17 07:28 Fentanyl (Sublimaze) Confirm Administered Dose 100 mcg .ROUTE .STK-MED ONE Stop: 02/21/17 08:28 Fentanyl (Sublimaze) Confirm Administered Dose 100 mcg .ROUTE .STK-MED ONE Stop: 02/21/17 08:39 Fentanyl Citrate (Fentanyl In Ns 20 Mcg/Ml 30 Ml Clinical Resource Coordinator) 0 mcg IV ASDIRECTED PRN; Protocol PRN Reason: Pain Last Admin: 02/22/17 02:52 Dose: 600 mcg Hydrochlorothiazide (Hydrochlorothiazide) 25 mg PO DAILY [facility] Last Admin: 02/23/17 08:06 Dose: 25 mg Hydroxyzine HCl (Vistaril) 50 mg IM Q4H PRN PRN Reason: Nausea Hydroxyzine HCl (Vistaril) 75 mg IM ONETIME ONE Stop: 02/21/17 09:51 Last Admin: 02/21/17 09:41 Dose: 75 mg Hydroxyzine HCl (Vistaril) 50 - 100 mg IM Q4H PRN PRN Reason: Nausea Last Admin: 02/21/17 22:27 Dose: 100 mg Lactated Ringer's (Ringers, Lactated) 1,000 mls @ 0 mls/hr IV ASDIRECTED [facility] PRN Reason: KVO Last Admin: 02/21/17 07:19 Dose: 999 mls/hr Cefazolin Sodium/Dextrose 2 gm (/ Premix) 50 mls @ 100 mls/hr IV ONETIME ONE Stop: 02/21/17 08:14 Last Admin: 02/21/17 11:03 Dose: Not Given Sodium Chloride (Normal Saline) Confirm Administered Dose 10 mls @ as directed .ROUTE .STK-MED ONE Stop: 02/21/17 07:30 Potassium Chloride/Dextrose/Sod Cl (D5 1/2 Ns W/ 20 Meq/L Kcl) 1,000 mls @ 125 mls/hr IV ASDIRECTED [facility] Last Admin: 02/22/17 04:00 Dose: 125 mls/hr Potassium Chloride/Dextrose/Sod Cl (D5 1/2 Ns W/ 20 Meq/L Kcl) 1,000 mls @ 25 mls/hr IV ASDIRECTED [facility] Ketorolac Tromethamine (Toradol) 60 mg IM ONETIME STA Stop: 02/21/17 19:40 Last Admin: 02/21/17 19:50 Dose: 60 mg Ketorolac Tromethamine (Toradol) 30 mg IM Q6H [facility] Stop: 02/26/17 23:59 Last Admin: 02/22/17 08:04 Dose: 30 mg Lisinopril (Prinivil) 20 mg PO DAILY [facility] Last Admin: 02/23/17 08:03 Dose: 20 mg Naloxone HCl (Narcan) 0.1 mg IVPUSH Q2M PRN PRN Reason: Respiratory Distress Nicotine (Nicotrol) 10 mg INH ASDIRECTED PRN PRN Reason: SMOKING CESSATION Last Admin: 02/21/17 16:36 Dose: 10 mg Ondansetron HCl (Zofran) Confirm Administered Dose 4 mg .ROUTE .STK-MED ONE Stop: 02/21/17 08:27 Ondansetron HCl (Zofran) 4 mg IVPUSH Q6H PRN PRN Reason: Nausea/Vomiting Last Admin: 02/23/17 08:02 Dose: 4 mg Oxycodone/Acetaminophen (Percocet 325-5 Mg) 1 - 2 tab PO Q4H PRN PRN Reason: Pain Last Admin: 02/23/17 08:02 Dose: 2 tab Oxytocin (Pitocin) Confirm Administered Dose 10 unit .ROUTE .STK-MED ONE Stop: 02/21/17 07:27 Last Admin: 02/21/17 08:22 Dose: 10 unit Oxytocin (Pitocin) Confirm Administered Dose 10 unit .ROUTE .STK-MED ONE Stop: 02/21/17 07:29 Tramadol HCl (Ultram) 50 mg PO Q6H PRN PRN Reason: Pain Last Admin: 02/22/17 13:37 Dose: 50 mg *Q Meaningful Use (DIS) - VTE *Q VTE Criteria *Q: - Stroke *Q Stroke Criteria *Q: - AMI *Q AMI Criteria *Q:
== END 2017-02-23 11:35 | disposition home or self-care (01) | DRG 765 ==
LOC: JP.SDS 06:02 → JP.MS 08:25
PROVIDERS: ADMIT Advanced Practice Midwife; ATTEND Surgery
PROC: 10D00Z1 Extraction of Products of Conception, Low, Open Approach (ICD-10-PCS; principal; 2017-02-21)
DX: O15.00 Eclampsia complicating pregnancy, unspecified trimester (principal); O99.323 Drug use complicating pregnancy, third trimester; O36.5990 Maternal care for other known or suspected poor fetal growth, unspecified trimester, not applicable or unspecified; O34.211 Maternal care for low transverse scar from previous cesarean delivery; N85.8 Other specified noninflammatory disorders of uterus; F12.90 Cannabis use, unspecified, uncomplicated; O99.334 Smoking (tobacco) complicating childbirth; F17.210 Nicotine dependence, cigarettes, uncomplicated; Z3A.37 37 weeks gestation of pregnancy; Z37.0 Single live birth; O99.343 Other mental disorders complicating pregnancy, third trimester; F32.9 Major depressive disorder, single episode, unspecified; Z88.5 Allergy status to narcotic agent; Z88.0 Allergy status to penicillin
CPT/HCPCS: 36415; 80048; 80053; 80305; 81003; 85027; 86850; 86900; 86901; 88307; 94762; A9270-GY; J0690; J1885; J2405; J2590; J3010; J3410; J3480; J7050; J7120

== ENCOUNTER 2018-04-23 13:52 | Emergency (ER) | payer MEDICAID ==
[2018-04-23 14:16] VITALS: BP 151/78
--- NOTE | 2018-04-23 14:54 | EDM.PDOC ---
ED HPI GENERAL MEDICAL PROBLEM - General Chief Complaint: Lower Extremity Injury/Pain Stated Complaint: HURT LEFT FOOT Time Seen by Provider: 04/23/18 14:35 Source of Information: Reports: Patient History Limitations: Reports: No Limitations - History of Present Illness INITIAL COMMENTS - FREE TEXT/NARRATIVE: 37-year-old female with an injury to her left foot. She kicked something at 5: 00 this morning and now has significant pain with weightbearing at the base of the fourth and fifth toe with a small amount of bruising. No significant swelling or deformity. Onset: Sudden Duration: Hour(s): (10 hours ago) Location: Reports: Lower Extremity, Left Associated Symptoms: Reports: No Other Symptoms - Related Data Allergies Allergy/AdvReac Type Severity Reaction Status Date / Time morphine AdvReac Vomiting Verified 04/23/18 14:19 Penicillins AdvReac Nausea and Verified 04/23/18 14:19 Vomiting Home Meds: Home Meds Cranberry 500 mg PO DAILY PRN 09/30/13 [History] Garlic 2 cap PO TID 09/30/13 [History] #103/Iron Fumarate/Fa [ ] 1 tab PO BEDTIME 07/28/16 [ History] Albuterol [IJD: Albuterol HFA] 1 puff INH Q4H PRN 02/10/17 [History] Folic Acid 4 mg PO DAILY 02/17/17 [History] Lactose-Reduced Food [Boost Plus] 237 ml PO BID 02/17/17 [History] Labetalol [Normodyne] 04/23/18 [History] Omeprazole 04/23/18 [History] Past Medical History HEENT History: Reports: Impaired Vision Cardiovascular History: Reports: Hypertension Respiratory History: Reports: Asthma, Bronchitis, Recurrent Gastrointestinal History: Reports: Bowel Obstruction, Gastritis Other Gastrointestinal History: 2007. 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: Reports: Endometriosis, Other OXYGEN THERAPY TEACHER History: cervical CA Musculoskeletal History: Reports: None Neurological History: Reports: Migraines Psychiatric History: Reports: ADHD, Addiction, Anxiety Hematologic History: Reports: Anemia, B12 Deficiency, Folic Acid, Iron Deficiency Immunologic History: Reports: None Oncologic (Cancer) History: Reports: Cervix Dermatologic History: Reports: Other (See Below) Other Dermatologic History: fungus on toenails - Infectious Disease History Infectious Disease History: Reports: Chicken Pox - Past Surgical History Head Surgeries/Procedures: Reports: None HEENT Surgical History: Reports: Oral Surgery Other HEENT Surgeries/Procedures: teeth removed as child. Tooth removal. Wears a flipper Cardiovascular Surgical History: Reports: None Respiratory Surgical History: Reports: None GI Surgical History: Reports: Cholecystectomy, EGD Female Surgical History: Reports: Section Endocrine Surgical History: Reports: None Neurological Surgical History: Reports: None Musculoskeletal Surgical History: Reports: None Oncologic Surgical History: Reports: None Dermatological Surgical History: Reports: None Social & Family History - Family History Family Medical History: Noncontributory - Tobacco Use Smoking Status *Q: Current Every Day Smoker Years of Tobacco use: 20 Packs/Tins Daily: 1 - Caffeine Use Caffeine Use: Reports: Coffee Other Caffeine Use: 1-2 cups per day Review of Systems - Review of Systems Review Of Systems: See Below Constitutional: Denies: Fever Respiratory: Denies: Shortness of Breath GI/Abdominal: Denies: Abdominal Pain, Nausea, Vomiting Skin: Reports: Bruising ED EXAM, GENERAL - Physical Exam Exam: See Below Exam Limited By: No Limitations General Appearance: Alert, No Apparent Distress Respiratory/Chest: No Respiratory Distress Extremities: Other (Exam is otherwise limited to the left foot. She has tenderness to palpation between the fourth and fifth toes at the distal metatarsals, with a very small amount of bruising but no swelling or deformity.) Course - Vital Signs Last Recorded V/S: Last Vital Signs Temp 95.7 F 04/23/18 14:27 Pulse 71 04/23/18 14:27 Resp 16 04/23/18 14:27 BP 151/78 H 04/23/18 14:27 Pulse Ox 100 04/23/18 14:27 - Orders/Labs/Meds Orders: Active Orders 24 hr Category Date Time Status Foot Comp Min 3V Lt [CR] Stat Exams 04/23/18 14:40 Taken - Re-Assessments/Exams Free Text/Narrative Re-Assessment/Exam: 04/23/18 14:54 X-ray of the left foot was obtained. 04/23/18 15:02 transverse minimally displaced fracture is present in the proximal phalanx of the small toe. Nothing needs to be done for treatment other than supporting the toe with good shoes or giovana taping, she can recheck if not healing satisfactorily. Departure - Departure Time of Disposition: 15:10 Disposition: Home, Self-Care 01 Condition: Good Clinical Impression: Fx phalanx, foot-closed Qualifiers: Encounter type: initial encounter Toe: lesser toe Phalanx: proximal Fracture alignment: displaced Laterality: left Qualified Code(s): S92.512A - Displaced fracture of proximal phalanx of left lesser toe(s), initial encounter for closed fracture - Discharge Information Instructions: Toe Fracture, [id number] Referrals: Balbina Houser CNM [Primary Care Provider] - Forms: ED Department Discharge Care Plan Goals: Support the toe with well fitting shoes or giovana taping to the fourth toe, elevate foot when not active and Tylenol for pain. Recheck with podiatry at the clinic if not improving satisfactorily in the next 1-2 weeks. - My Orders Last 24 Hours: My Active Orders 04/23/18 14:40 Foot Comp Min 3V Lt [CR] Stat - Assessment/Plan Last 24 Hours: My Active Orders 04/23/18 14:40 Foot Comp Min 3V Lt [CR] Stat
--- NOTE | 2018-04-24 09:31 | CR ---
Foot Comp Min 3V Lt CLINICAL HISTORY: Left foot pain FINDINGS: There is a slightly displaced fracture of the fifth proximal phalanx. There is no articular involvement. IMPRESSION: Minimally displaced fracture of the fifth proximal phalanx
== END 2018-04-23 15:11 | disposition home or self-care (01) ==
LOC: JP.ED 13:52
DX: S92.512A Displaced fracture of proximal phalanx of left lesser toe(s), initial encounter for closed fracture (principal); F17.210 Nicotine dependence, cigarettes, uncomplicated; I10 Essential (primary) hypertension; Z79.899 Other long term (current) drug therapy; Z88.5 Allergy status to narcotic agent; Z88.0 Allergy status to penicillin; W22.8XXA Striking against or struck by other objects, initial encounter
CPT/HCPCS: 73630-26-LT; 73630-LT; 99284

== ENCOUNTER 2023-05-17 23:10 | Emergency (ER) | payer MEDICARE, MEDICAID ==
[2023-05-17 23:28] VITALS: PULSE 107
[2023-05-18 00:09] LABS: BASOPHILS ABSOLUTE AUTO 0.02 K/uL (0.00-0.10); BASOPHILS PERCENT AUTO 0.2 % (0.1-1.3); HEMATOCRIT 37.1 % (34.3-46.0); HEMOGLOBIN 12.7 g/dL (11.2-15.5); IMMATURE GRAN PERCENT AUTO 0.8 % (0.0-0.7); LYMPHOCYTES ABSOLUTE AUTO 1.19 K/uL (0.8-3.3); LYMPHOCYTES PERCENT AUTO 8.9 % (11.4-47.7); MEAN CORPUSCULAR HEMOGLOBIN 31.6 pg (31.6-35.5); MEAN CORPUSCULAR HGB CONC 34.2 g/dL (31.6-35.5); MEAN CORPUSCULAR VOLUME 92.3 fL (81.4-99.0); MONOCYTES ABSOLUTE AUTO 0.58 K/uL (0.20-0.90); MONOCYTES PERCENT AUTO 4.4 % (3.3-12.6); NEUTROPHILS ABSOLUTE AUTO 11.43 K/uL (1.0-7.6); NEUTROPHILS PERCENT AUTO 85.7 % (40.0-78.1); PLATELET COUNT,PLT 340 K/uL (130-375); RED BLOOD CELL COUNT 4.02 M/uL (3.77-5.24); WHITE BLOOD CELL COUNT,WBC 13.3 K/uL (3.2-11.0)
[2023-05-18 00:18] LABS: ANION GAP 12.1 mmol/L (5.0-14.0); C-REACTIVE PROTEIN 0.18 mg/dL (0.0-0.3); CALCIUM 8.6 mg/dL (8.5-10.1); CREATININE 0.8 mg/dL (0.6-1.0); EST CRCL DRUG DOSING (CG) 77.49 mL/min; POTASSIUM,K 4.1 mmol/L (3.6-5.2)
== END 2023-05-18 01:36 | disposition home or self-care (01) ==
LOC: JP.ED 23:10
DX: L76.82 Other postprocedural complications of skin and subcutaneous tissue (principal); I10 Essential (primary) hypertension; J45.909 Unspecified asthma, uncomplicated; F17.210 Nicotine dependence, cigarettes, uncomplicated; Z86.16 Personal history of COVID-19; Z91.048 Other nonmedicinal substance allergy status; Z88.5 Allergy status to narcotic agent; Z88.0 Allergy status to penicillin; Z79.899 Other long term (current) drug therapy; Z79.82 Long term (current) use of aspirin
CPT/HCPCS: 36415; 70450; 80048; 85025; 86140; 99284